=== PATIENT | male | born 1940 | race Caucasian/White ===

== ENCOUNTER → 2016-12-06 | Outpatient (CLI) | payer MEDICARE, OTHER ==
--- NOTE | 2016-12-07 09:32 | DRAGON STRESS TEST REPORT ---
EXERCISE CARDIOLITE STRESS TEST USING SINGLE PHOTON EMMISION COMPUTERIZED TOMOGRAPHIC. DATE OF PROCEDURE: December 06, 2016 INDICATION : Coronary artery disease CARDIAC RISK FACTORS: Hypertension, dyslipidemia, diabetes RESTING EKG: Sinus rhythm, QS complex in V1 to V3 suggestive of prior anteroseptal myocardial infarction and nonspecific T-wave inversion STRESS EKG: No significant changes noted with LexiScan bolus REASON FOR TERMINATION: Protocol. PROCEDURE REPORT: Baseline heart rate 98 beats per minute with blood pressure of 112/49. Patient was exercised on standard Cornel protocol. Patient exercised for total of 4 minutes and 27 seconds. Stage was held at stage I. Patient achieved a peak heart rate of 1 27 bpm which is 87% of predicted maximum. Peak blood pressure was noted to be 148/64. Patient achieved a met level of 4.60. Double product was noted to be 18.14 kcal. CONCLUSIONS: No significant ST segment changes were noted when compared to baseline. NUCLEAR DATA: At rest the patient was given 16.02 millicuries of technetium 99 sestamibi injected intravenously. As per protocol rest gated SPECT images were obtained. Subsequently the patient was given intravenous LexiScan at a dose of 0.4 mg in 5 mL intravenously, followed by flush with normal saline. Subsequently the stress dose of 47.4 millicuries of technetium 99 sestamibi was injected intravenously. As per protocol stress gated images were obtained. NUCLEAR INTERPRETATION: Both raw and processed data were used for interpretation. Visual, qualitative, computer-generated quantitative data was used. There was good myocardial uptake of technetium compound. Motion artifact and soft tissue attenuations were noted. Increased visceral uptake was noted. An area of severe fixed defect noted in the LV apex consistent with scar and prior myocardial infarction. In addition an area of mild to moderate predominantly fixed defect with surrounding area of transient perfusion defect noted in the basal and mid inferior wall. EKG gated imaging showed LV EF at 40 %, rest and stress gated EF similar visually. Apical akinesia along with inferior wall hypokinesia noted. T I D. ratio was 0.95. Lung heart ratio noted to be within normal limits 0.31. No significant extracardiac and abnormal radiotracer activities were noted. RV free wall uptake was noted to be WNL. IMPRESSION: Also refer to comments under nuclear interpretation. Also test results needs to be interpreted in the context of pretest probability. 1. Severe fixed defect noted in the LV apex consistent with prior myocardial infarction. 2. Predominantly mild to moderate fixed defect in the basal and mid inferior wall with small area of transient perfusion defect noted. This is indicative of mild to moderate scar with surrounding ischemia involving the basal and mid inferior wall. 3. EKG gated imaging shows left ejection fraction of approximately 40% with apical akinesia and basal and mid inferior wall hypokinesia. 4. Patient noted to have decreased exercise tolerance but possibly satisfactory for a 76-year-old gentleman with obesity. Double product achieved with suboptimal. RECOMMENDATIONS: Aggressive risk factor modification, medical therapy. Consider heart catheterization if significant symptoms. Clinical correlation with echocardiogram derived ejection fraction. Inability to exercise by itself can lead to increased cardiovascular event risks. Stan Lozano M.D., [employer]EREM[employer] Clerk dealer account manager, Board certified in cardiovascular diseases, Nuclear cardiology, Echocardiography Cardiac CT and cardiac MRI Ph. [phone] [facility]
== END ==
LOC: RAD 07:42
PROVIDERS: ATTEND Internal Medicine Cardiovascular Disease
DX: I25.10 Atherosclerotic heart disease of native coronary artery without angina pectoris (principal); I10 Essential (primary) hypertension; E78.5 Hyperlipidemia, unspecified; E11.9 Type 2 diabetes mellitus without complications
CPT/HCPCS: 93017; 78452; A9500; Q9969

== ENCOUNTER 2017-08-29 16:12 | Observation (INO) | payer MEDICARE, OTHER ==
[2017-08-29] MEDS ORDERED: ASPIRIN 81 MG TABLET, CHEWABLE PO ONE (16:18)
[2017-08-29 16:45] LABS: ABSOLUTE BASOPHILS # (AUTO) 0.1 10^3/uL (0.0-0.2); ABSOLUTE EOSINOPHILS # (AUTO) 0.2 10^3/uL (0.0-0.6); ABSOLUTE LYMPHOCYTES (AUTO) 2.8 10^3/uL (0.5-4.7); ABSOLUTE MONOCYTES (AUTO) 0.9 10^3/uL (0.1-1.4); ABSOLUTE NEUT (AUTO) 5.7 10^3/uL (1.7-8.2); BASOPHILS % (AUTO) 0.7 % (0-2); EOSINOPHILS % (AUTO) 1.8 % (0-6); HEMOGLOBIN 14.2 g/dL (13.5-17.0); LYMPHOCYTES % (AUTO) 28.7 % (13-45); MEAN CORPUSCULAR HEMOGLOBIN 29.3 pg (27.0-33.4); MEAN CORPUSCULAR HGB CONC 33.1 g/dL (32.0-36.0); MEAN CORPUSCULAR VOLUME 89 fl (80-97); MONOCYTES % (AUTO) 9.7 % (3-13); PLATELET COUNT 314 10^3/uL (150-450); RED BLOOD COUNT 4.85 10^6/uL (4.35-5.55); RED CELL DISTRIBUTION WIDTH 14.3 % (11.5-14.0); SEGMENTED NEUTROPHILS % (AUTO) 59.1 % (42-78); TOTAL CELLS COUNTED % (AUTO) 100 %; WHITE BLOOD COUNT 9.7 10^3/uL (4.0-10.5)
--- NOTE | 2017-08-29 16:58 | ER Document Report ---
ED General - General Chief Complaint: Chest Pain Stated Complaint: CHEST PAIN Time Seen by Provider: 08/29/17 16:47 Mode of Arrival: Medic Information source: Patient TRAVEL OUTSIDE OF THE [place] IN LAST 30 DAYS: No - HPI Notes: 77-year-old male with a history of hyperlipidemia, GERD, acute coronary syndrome and well-controlled diabetes presents today with complaints of left- sided transient chest pain that has been occurring for the last day, reports pain is now mental. Patient states that he called 911 because the chest pain was getting worse. He was given 324 baby aspirin to chew, was given 1 nitroglycerin sublingual to take. Patient reports chest pain did not radiate. Patient was diagnosed in 1986 with having a heart attack, in 1989 patient had a bypass involving 4 vessels. Patient reports in 1999 he had a stent placed in [place]. Patient denies worse with movement. Patient states he had a cardiac stress test and echocardiogram in November 2016. patient states he has a pain at rest. Eating and drink without issues. Denies fevers, chills, palpitations, shortness of breath, dyspnea, nausea, vomiting, diarrhea, abdominal pain, hematuria,blurred vision, double vision, loss of vision, speech changes, LH, dizziness, syncope, headaches, wheezing, ST, URI, neck pain, weakness, bowel or bladder dysfunction, saddle anesthesia, numbness or tingling in bilateral upper or lower extremities equally, muscle paralysis, weakness in bilateral upper or lower extremities equally or rash. Denies IV drug use. - Related Data Allergies/Adverse Reactions: acetaminophen [From Excedrin P.M.] Allergy (Verified 08/29/17 16:36) diphenhydramine citrate [From Excedrin P.M.] Allergy (Verified 08/29/17 16:36) diphenhydramine HCl [From Excedrin P.M.] Allergy (Verified 08/29/17 16:36) Past Medical History - General Information source: Patient - Social History Smoking Status: Former Smoker Chew tobacco use (# tins/day): No Frequency of alcohol use: None Drug Abuse: None Family History: CAD, Hyperlipidemia Patient has suicidal ideation: No Patient has homicidal ideation: No - Past Medical History Cardiac Medical History: Reports: Hx Heart Attack Renal/ Medical History: Denies: Hx Peritoneal Dialysis Past Surgical History: Reports: Hx Cardiac Catheterization - with stents - Immunizations Hx Pneumococcal Vaccination: 06/24/09 Review of Systems - Review of Systems Notes: REVIEW OF SYSTEMS: CONSTITUTIONAL : Denies fever, chills, or sweats. Denies recent illness. EENT: Denies eye, ear, throat, or mouth pain or symptoms. Denies nasal or sinus congestion or discharge. Denies throat, tongue, or mouth swelling or difficulty swallowing. CARDIOVASCULAR: reports chest pain. Denies palpitations or racing or irregular heart beat. Denies ankle edema. RESPIRATORY: Denies cough, cold, or chest congestion. Denies shortness of breath, difficulty breathing, or wheezing. GASTROINTESTINAL: Denies abdominal pain or distention. Denies nausea, vomiting , or diarrhea. Denies blood in vomitus, stools, or per rectum. Denies black, tarry stools. Denies constipation. GENITOURINARY: Denies difficulty urinating, painful urination, burning, frequency, blood in urine, or discharge. MUSCULOSKELETAL: Denies back or neck pain or stiffness. Denies joint pain or swelling. SKIN: Denies rash, lesions or sores. HEMATOLOGIC : Denies easy bruising or bleeding. LYMPHATIC: Denies swollen, enlarged glands. NEUROLOGICAL: Denies confusion or altered mental status. Denies passing out or loss of consciousness. Denies dizziness or lightheadedness. Denies headache. Denies weakness or paralysis or loss of use of either side. Denies problems with gait or speech. Denies sensory loss, numbness, or tingling. Denies seizures. PSYCHIATRIC: Denies anxiety or stress. Denies depression, suicidal ideation, or homicidal ideation. ALL OTHER SYSTEMS REVIEWED AND NEGATIVE. Dictation was performed using [employer] voice recognition software PHYSICAL EXAMINATION: GENERAL: Well-appearing, well-nourished and in no acute distress. HEAD: Atraumatic, normocephalic. EYES: Pupils equal round and reactive to light, extraocular movements intact, sclera anicteric, conjunctiva are normal. ENT: Nares patent, oropharynx clear without exudates. Moist mucous membranes. NECK: Normal range of motion, supple without lymphadenopathy LUNGS: Breath sounds clear to auscultation bilaterally and equal. No wheezes rales or rhonchi. HEART: Regular rate and rhythm without murmurs ABDOMEN: Soft, nontender, nondistended abdomen. No guarding, no rebound. No masses appreciated. Musculoskeletal: Normal range of motion, no pitting or edema. No cyanosis. NEUROLOGICAL: Cranial nerves grossly intact. Normal speech, normal gait. Normal sensory, motor exams PSYCH: Normal mood, normal affect. SKIN: Warm, Dry, normal turgor, no rashes or lesions noted. Physical Exam - Vital signs Vitals: Temp Resp 98.1 F 15 08/29/17 16:18 08/29/17 16:18 Course - Re-evaluation Re-evalutation: 08/29/17 17:43 1630-patient evaluated at bedside, vital signs stable. 1700-patient states his chest pain, patient given 0.4 nitro sublingual, 5 minutes later patient states that his chest pain was resolved.Discussed the results of the labs/radiology as well as the diagnosis at great length. Discussed with patient that his troponin is negative, his EKG is non-STEMI, however he since he is having chest pain was resolved with nitro, as well as with his extensive history of cardiac bypass, cardiac cath, hyperlipidemia, diabetes patient's heart score is 4, which places him at moderate risk. will admit patient for observation. Lucia Garza consulted at 1740 and patient was accepted to be admitted on observation to telemetry for unstable angina. Patient verbalized understanding and all questions and concerns answered by this provider. - Vital Signs Vital signs: Temp Pulse Resp BP Pulse Ox 98.1 F 21 H 112/69 98 08/29/17 16:18 08/29/17 16:19 08/29/17 16:19 08/29/17 16:29 - Laboratory Result Diagrams: 08/29/17 16:23 08/29/17 16:23 Laboratory results interpreted by me: 08/29/17 08/29/17 16:23 16:23 RDW 14.3 H Glucose 157 H Discharge - Discharge Clinical Impression: Unstable angina Condition: Good Disposition: ADMITTED OBSERVATION Admitting Provider: Hospitalist - Lucia Garza NP Unit Admitted: Telemetry
[2017-08-29] MEDS ORDERED: NORMAL SALINE 1000 ML 1,000 ML IV PRN (16:59)
[2017-08-29] MEDS ORDERED: NITROGLYCERIN 0.4 MG/TAB 25 TAB/BOTTLE SL STA (16:59)
[2017-08-29 17:05] LABS: ALANINE AMINOTRANSFERASE 35 U/L (21-72); ALBUMIN 3.9 g/dL (3.5-5.0); ALKALINE PHOSPHATASE 79 U/L (38-126); ANION GAP 10 (5-19); ASPARTATE AMINO TRANSFERASE 21 U/L (17-59); BILIRUBIN,DIRECT 0.4 mg/dL (0.0-0.4); BILIRUBIN,TOTAL 1.1 mg/dL (0.2-1.3); BLOOD UREA NITROGEN 17 mg/dL (7-20); CALCIUM 9.5 mg/dL (8.4-10.2); CARBON DIOXIDE 26 mmol/L (22-30); CHLORIDE 103 mmol/L (98-107); CREATINE KINASE 56 U/L (55-170); GLUCOSE 157 mg/dL (75-110); POTASSIUM 4.3 mmol/L (3.6-5.0); SODIUM 138.9 mmol/L (137-145); TOTAL PROTEIN 6.4 g/dL (6.3-8.2)
--- NOTE | 2017-08-29 17:14 | RADIOLOGY REPORT (SQ) ---
EXAM DESCRIPTION: CHEST SINGLE VIEW COMPLETED DATE/TIME: 08/29/2017 5:03 pm REASON FOR STUDY: cp COMPARISON: 01/24/2011 EXAM PARAMETERS: NUMBER OF VIEWS: One view. TECHNIQUE: Single frontal radiographic view of the chest acquired. RADIATION DOSE: NA LIMITATIONS: None. FINDINGS: LUNGS AND PLEURA: No opacities, masses or pneumothorax. No pleural effusion. MEDIASTINUM AND HILAR STRUCTURES: No masses. Contour normal. HEART AND VASCULAR STRUCTURES: Heart normal in size. Normal vasculature. BONES: No acute findings. HARDWARE: Sternotomy wires. OTHER: No other significant finding. IMPRESSION: NO ACUTE RADIOGRAPHIC FINDING IN THE CHEST. TECHNICAL DOCUMENTATION: JOB ID: [id number] [employer]- All Rights Reserved Reading location - IP/workstation name: [email or web address]
[2017-08-29 17:16] LABS: CREATINE KINASE MB 0.85 ng/mL (<4.55)
[2017-08-29 17:19] LABS: TROPONIN I < 0.012 ng/mL
[2017-08-29] MEDS ORDERED: NORMAL SALINE 1000 ML 1,000 ML IV ONE (17:58)
[2017-08-29] MEDS ORDERED: NITROGLYCERIN 0.4 MG/TAB 25 TAB/BOTTLE SL PRN (18:12)
--- NOTE | 2017-08-29 19:22 | PDOC H&P ---
History of Present Illness Admission Date/PCP: 08/29/17 17:45 LETICIA RANKIN MD Patient complains of: Chest pain History of Present Illness: DINORA SALDANA is a 77 year old male who presents to the emergency department with left anterior chest wall pressure/tightness x 1 day. The patient states that the pain is centered on the left side of his chest, it is nonradiating. He denies nausea, vomiting, dizziness, shortness of breath, vision changes with episodes of chest pain. The patient states that his chest pain began when he was going to the bathroom, and his pain has been intermittent ever since then. EMS transported the patient to the emergency department, en route the patient received 1 sublingual nitro and 325 mg ASA. His chest pain was mildly relieved , but reoccurred while he was in the emergency department. Patient was given another dose of sublingual nitro and he states that he has been chest pain-free since that time. EKG shows normal sinus rhythm with T-wave inversion in leads V4-6. Initial troponin was < 0.012. Chest x-ray benign. PMH includes DM, HTN, HLD, ID (1986), 4 vessel CABG (1989), Stent x 1 (2009). Most recent stress test and echocardiogram completed in November 2016 Past Medical History Cardiac Medical History: Reports: Coronary Artery Disease, Myocardial Infarction Endocrine Medical History: Reports: Diabetes Mellitus Type 2 GI Medical History: Reports: Gastroesophageal Reflux Disease GI History Note: HYPERLIPIDEMIA Past Surgical History Past Surgical History: Reports: Cardiac Catheterization - with stents, Cholecystectomy Social History Lives with: Spouse/Significant other Smoking Status: Former Smoker Drugs: None - Advance Directive Resuscitation Status: Full Code Family History Family History: CAD, Hyperlipidemia Parental Family History Reviewed: No Children Family History Reviewed: No Sibling(s) Family History Reviewed.: No Medication/Allergy Home Medications: Amlodipine/Atorvastatin [Amlodipine-Atorvast 10-10 mg] 10 PO DAILY 08/29/17 Atorvastatin Calcium 40 mg PO WSUPPER 08/29/17 Lisinopril 10 mg PO WSUPPER 08/29/17 Metoprolol Chinchilla/Hydrochlorothiaz [Metoprolol ER-Hctz 50-12.5 mg] 50 PO DAILY 08/29 Omeprazole 20 mg PO DAILY 08/29/17 Pioglitazone HCl 30 mg PO DAILY 08/29/17 Allergies/Adverse Reactions: acetaminophen [From Excedrin P.M.] Allergy (Verified 08/29/17 16:36) diphenhydramine citrate [From Excedrin P.M.] Allergy (Verified 08/29/17 16:36) diphenhydramine HCl [From Excedrin P.M.] Allergy (Verified 08/29/17 16:36) Review of Systems Constitutional: PRESENT: as per HPI Eyes: ABSENT: as per HPI, visual disturbances, other Ears: ABSENT: as per HPI, hearing changes, other Nose, Mouth, and Throat: ABSENT: as per HPI, headache(s), mouth pain, sore throat, vertigo, other Cardiovascular: PRESENT: chest pain Respiratory: ABSENT: as per HPI, cough, dyspnea, hemoptysis, sputum, other Gastrointestinal: ABSENT: as per HPI, abdominal pain, bloating, coffee ground emesis, constipation, diarrhea, dysphagia, heartburn, hematemesis, hematochezia , melena, nausea, vomiting, other Genitourinary: ABSENT: as per HPI, difficulty urinating, dysuria, hematuria, nocturia, other Musculoskeletal: ABSENT: as per HPI, back pain, deformity, joint swelling, muscle weakness, other Neurological: ABSENT: as per HPI, abnormal gait, abnormal movements, abnormal speech, confusion, convulsions, dizziness, focal weakness, frequent falls, lack of coordination, memory loss, numbness, paresthesias, restless legs, syncope, tingling, tremor(s), vertigo, weakness, other Psychiatric: ABSENT: as per HPI, anxiety, depression, hallucinations, homidical ideation, suicidal ideation, other Endocrine: ABSENT: as per HPI, cold intolerance, flushing, heat intolerance, menstrual abnormalities, polydipsia, polyphagia, polyuria, other Hematologic/Lymphatic: ABSENT: as per HPI, easy bleeding, easy bruising, lymphadenopathy, other Allergic/Immunologic: ABSENT: as per HPI, seasonal rhinorrhea, other Physical Exam Vital Signs: Temp Pulse Resp BP Pulse Ox 98.1 F 21 H 112/69 98 08/29/17 16:18 08/29/17 16:19 08/29/17 16:19 08/29/17 16:29 General appearance: PRESENT: no acute distress Head exam: PRESENT: atraumatic Eye exam: PRESENT: conjunctiva pink Mouth exam: PRESENT: moist Neck exam: PRESENT: full ROM Respiratory exam: PRESENT: clear to auscultation randy Cardiovascular exam: PRESENT: +S1 Pulses: PRESENT: normal femoral pulses, normal dorsalis pedis pul Vascular exam: PRESENT: normal capillary refill GI/Abdominal exam: PRESENT: soft Rectal exam: PRESENT: deferred Extremities exam: PRESENT: full ROM Musculoskeletal exam: PRESENT: full ROM Neurological exam: PRESENT: alert, altered, awake, oriented to person, oriented to place, oriented to time, oriented to situation Psychiatric exam: PRESENT: appropriate affect Skin exam: PRESENT: normal color Additional comments: MORBID OBESITY Results Impressions: Chest X-Ray 08/29/17 16:18 IMPRESSION: NO ACUTE RADIOGRAPHIC FINDING IN THE CHEST. Status: Imported from PACS Assessment & Plan - Diagnosis (1) Chest pain Qualifiers: Chest pain type: other chest pain Qualified Code(s): R07.89 - Other chest pain; R07.8 - Other chest pain Is this a current diagnosis for this admission?: Yes Plan: Patient presents with left anterior wall chest pressure/tightnessx 1 day. Pain started when patient was in the bathroom and has continued intermittently x 24hrs. The patient states his chest pain is intermittent in nature and nonradiating. Relieved with SL nitro. At the time of assessment the patient stated that he was chest pain-free. History of ID, four-vessel CABG, cardiac stent 1. Given the patient's significant cardiac history, and nearly 20 year old bypass vessels, this patient needs to be closely monitored. Cardiology consulted. Plan for ECHOcardiogram and stress test tomorrow morning. Initial troponin negative, will continue to trend x 3 EKG shows NSR with T wave inversion in V4-6 ASA, beta pa, statin therapy (2) Hypertension Qualifiers: Hypertension type: essential hypertension Qualified Code(s): I10 - Essential (primary) hypertension Is this a current diagnosis for this admission?: Yes Plan: Patient has a history of hypertension. While in the emergency department he has been NORMOtensive. Will continue home dose antihypertensives. (3) Hyperlipemia Qualifiers: Hyperlipidemia type: unspecified Qualified Code(s): E78.5 - Hyperlipidemia , unspecified Is this a current diagnosis for this admission?: Yes Plan: Patient has a history of hyperlipidemia. Continue home dose statin. - Time Time Spent: 30 to 50 Minutes Medications reviewed and adjusted accordingly: Yes Anticipated discharge: Home Within: within 36 hours - Inpatient Certification Based on my medical assessment, after consideration of the patient's comorbidities, presenting symptoms, or acuity I expect that the services needed warrant INPATIENT care.: Yes I certify that my determination is in accordance with my understanding of Medicare's requirements for reasonable and necessary INPATIENT services [42 CFR 412.3e].: Yes Medical Necessity: Risk of Complication if Not Cared For in Hospital - Plan Summary Plan Summary: Ultimately, the plan for this patient is to admit under observation status for chest pain workup. He will be evaluated by cardiology, and a stress test and echocardiogram will be performed. Additionally we will follow serial cardiac enzymes. Should the patient began to experience chest pain not relieved by nitro or should he start to decompensate, consider transfer to tertiary facility.
--- NOTE | 2017-08-29 22:05 | EKG REPORT ---
SEVERITY:- ABNORMAL ECG - SINUS RHYTHM ANTERIOR INFARCT, AGE INDETERMINATE : Confirmed by: Stan Lozano 29-Aug-2017 22:05:31
[2017-08-29] MEDS: LISINOPRIL 10 MG TABLET PO SCH (22:43)
[2017-08-29] MEDS: ATORVASTATIN CALCIUM 40 MG TABLET PO SCH (22:44)
[2017-08-30] MEDS ORDERED: IBUPROFEN 400 MG TABLET PO PRN (05:37)
[2017-08-30] MEDS: LANSOPRAZOLE 15 MG TAB.RAP.DR PO SCH (05:41)
[2017-08-30 06:29] LABS: ABSOLUTE EOSINOPHILS # (AUTO) 0.2 10^3/uL (0.0-0.6); ABSOLUTE LYMPHOCYTES (AUTO) 2.8 10^3/uL (0.5-4.7); ABSOLUTE MONOCYTES (AUTO) 0.9 10^3/uL (0.1-1.4); ABSOLUTE NEUT (AUTO) 5.1 10^3/uL (1.7-8.2); BASOPHILS % (AUTO) 0.5 % (0-2); EOSINOPHILS % (AUTO) 2.1 % (0-6); HEMOGLOBIN 13.9 g/dL (13.5-17.0); LYMPHOCYTES % (AUTO) 30.8 % (13-45); MEAN CORPUSCULAR HEMOGLOBIN 29.2 pg (27.0-33.4); MEAN CORPUSCULAR HGB CONC 33.1 g/dL (32.0-36.0); MEAN CORPUSCULAR VOLUME 88 fl (80-97); MONOCYTES % (AUTO) 9.5 % (3-13); RED BLOOD COUNT 4.76 10^6/uL (4.35-5.55); RED CELL DISTRIBUTION WIDTH 14.4 % (11.5-14.0); SEGMENTED NEUTROPHILS % (AUTO) 57.1 % (42-78); TOTAL CELLS COUNTED % (AUTO) 100 %
[2017-08-30 06:30] LABS: PLATELET COUNT 260 10^3/uL (150-450)
[2017-08-30 07:19] LABS: ANION GAP 8 (5-19); BLOOD UREA NITROGEN 13 mg/dL (7-20); CALCIUM 9.4 mg/dL (8.4-10.2); CARBON DIOXIDE 24 mmol/L (22-30); CHLORIDE 108 mmol/L (98-107); GLUCOSE 128 mg/dL (75-110); PHOSPHORUS 3.4 mg/dL (2.5-4.5); POTASSIUM 4.3 mmol/L (3.6-5.0); SODIUM 139.5 mmol/L (137-145)
--- NOTE | 2017-08-30 08:51 | EKG REPORT ---
SEVERITY:- ABNORMAL ECG - SINUS RHYTHM ANTERIOR INFARCT, AGE INDETERMINATE : Confirmed by: Stan Lozano 30-Aug-2017 08:50:29
[2017-08-30] MEDS ORDERED: ASPIRIN 81 MG TABLET, CHEWABLE PO SCH (10:00)
--- NOTE | 2017-08-30 12:26 | PDOC CONSULTATION ---
Consultation Consult Date: 08/30/17 Attending physician:: EULA SOLORZANO Consult reason:: Chest pain History of Present Illness Admission Date/PCP: 08/29/17 17:45 LETICIA RNAKIN MD Patient complains of: Chest pain History of Present Illness: DINORA SALDANA is a 77 year old male who presents to the emergency department with left anterior chest wall pressure/tightness x 1 day. The patient states that the pain is centered on the left side of his chest, it is nonradiating. He denies nausea, vomiting, dizziness, shortness of breath, vision changes with episodes of chest pain. The patient states that his chest pain began when he was going to the bathroom, and his pain has been intermittent ever since then. EMS transported the patient to the emergency department, en route the patient received 1 sublingual nitro and 325 mg ASA. His chest pain was mildly relieved , but reoccurred while he was in the emergency department. Patient was given another dose of sublingual nitro and he states that he has been chest pain-free since that time. EKG shows normal sinus rhythm with T-wave inversion in leads V4-6. Initial troponin was < 0.012. Chest x-ray benign. PMH includes DM, HTN, HLD, [place] (1986), 4 vessel CABG (1989), Stent x 1 (2009). Most recent stress test and echocardiogram completed in November 2016. This history was reviewed and confirmed. Patient described the chest discomfort as intermittent lasting about 2 minutes at most, without any definite precipitating factors. It happened throughout the day off and on, on the day of presentation. So far cardiac enzymes has been negative. EKG changes as noted above. Subsequent troponin I came back negative. Past Medical History Cardiac Medical History: Reports: Congestive Heart Failure, Coronary Artery Disease, Myocardial Infarction, Hypertension Endocrine Medical History: Reports: Diabetes Mellitus Type 2 GI Medical History: Reports: Gastroesophageal Reflux Disease Past Surgical History Past Surgical History: Reports: Cardiac Catheterization - with stents, Cholecystectomy Social History Information Source: Patient Lives with: Spouse/Significant other Smoking Status: Former Smoker Drugs: None - Advance Directive Resuscitation Status: Full Code Family History Family History: CAD, Hyperlipidemia Parental Family History Reviewed: Yes Children Family History Reviewed: Yes Sibling(s) Family History Reviewed.: Yes Medication/Allergy Home Medications: Amlodipine Besylate [Norvasc 5 mg Tablet] 5 mg PO DAILY 08/30/17 Aspirin [Aspirin 81 mg Chewable Tablet] 81 mg PO DAILY 08/30/17 Lisinopril [Prinivil 10 mg Tablet] 10 mg PO QHS 08/30/17 Loratadine [Claritin 10 mg Tablet] 10 mg PO DAILYP PRN 08/30/17 Metoprolol Tartrate [Lopressor 100 mg Tablet] 100 mg PO DAILY 08/30/17 Multivit with Iron,Minerals [Spectravite Senior] 1 each PO DAILY 08/30/17 Nitroglycerin [Nitrostat 0.4 mg (1/150 Gr) Tabs 25/Bottle] 1 tab SL Q5MP PRN 03/11 [place]-3 Acid Ethyl Esters [Lovaza 1 gm Capsule] 1 gm PO DAILY 08/30/17 Omeprazole 20 mg PO Q6AM 08/30/17 Pioglitazone HCl [Actos] 30 mg PO QAM 08/30/17 Vit C/E/Zn/Coppr/Lutein/Zeaxan [Preservision Areds 2 Softgel] 1 each PO DAILY Atorvastatin Calcium [Lipitor 80 mg Tablet] 80 mg PO QHS #30 tablet 08/31/17 Lisinopril [Prinivil 10 mg Tablet] 10 mg PO QHS tablet 08/31/17 Allergies/Adverse Reactions: acetaminophen [From Excedrin P.M.] Allergy (Severe, Verified 08/30/17 05:17) TONGUE SWELLING diphenhydramine HCl [From Excedrin P.M.] Allergy (Severe, Verified 08/30/17 05: 16) TONGUE SWELLING diphenhydramine citrate [From Excedrin P.M.] Allergy (Verified 08/30/17 05:17) TONGUE SWELLING Review of Systems Review of Systems: Please see history of present illness and past medical history as wall. Constitutional: No fever or chills reported. Head : No recent chronic headaches, recent head injury. Eyes: No recent eye pain, diplopia, redness, discharge, acute visual changes. Ears: No recent chronic ear pain, acute hearing loss, ear discharge. Oral cavity: No recent ulcerations, bleeding, oral cavity discomfort. Neck: No recent acute neck pain reported. Hematologic: No recent easy bruising or bleeding or hematologic malignancy reported. Lymphatic: No recent lymphatic malignancy, chronic lymphadenopathy reported yet Cardiovascular system review: See history of present illness. Respiratory system review: No recent chronic cough, hemoptysis, blood clots in the lungs reported. Mild Shortness of breath on exertion Gastrointestinal system review: Negative for any recent acute or chronic abdominal pain, hematemesis, melena, recent change in bowel habits. Genitourinary system review: No recent acute or chronic hematuria, flank pain, UTI etc. reported. Skin system review: Negative for any recent abnormal bruising, no rash, no pruritus reported. Neurologic: No prior history of strokes, mini strokes, seizure disorder. Psychologic: No history of major psychosis or major depression reported. Musculoskeletal: Minor aches and pains reported. No acute joint swelling reported. Endocrine: No recent polyuria, polydipsia, recent heat or cold intolerance. Physical Exam Vital Signs: Temp Pulse Resp BP Pulse Ox 98.0 F 106 H 19 136/77 H 96 08/30/17 11:15 08/30/17 11:15 08/30/17 11:15 08/30/17 11:15 08/30/17 11:15 Intake & Output 08/29/17 08/30/17 08/31/17 06:59 06:59 06:59 Intake Total 200 Balance 200 Weight 128.5 kg Exam: GENERAL: well-nourished and in no acute distress. Alert and oriented x3 HEAD: Atraumatic, normocephalic. EYES: Pupils equal round and reactive to light, extraocular movements intact, sclera anicteric, conjunctiva are normal. ENT: TMs normal, nares patent, oropharynx clear without exudates. Moist mucous membranes. No oral ulcerations or bleeding gums noted NECK: supple without lymphadenopathy. Trachea is central. No cervical or axillary lymphadenopathy noted. Carotids are 2+, JVD WNL LUNGS: Respiration seems nonlabored, no significant accessory muscle action noted. Breath sounds clear to auscultation bilaterally and equal noted. No wheezes rales or rhonchi noted. No significant dullness noted on percussion. CHEST: Palpation of the chest wall shows no significant chest wall tenderness. No other significant abnormalities noted. 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 ABDOMEN: Soft, no significant tenderness appreciated, normoactive bowel sounds. No guarding, no rebound. No rigidity noted . No masses appreciated. EXTREMITIES: Pedal pulses are 1-2+, no calf tenderness noted. No clubbing or cyanosis.trace to 1+ pedal edema noted, left lower extremity NEUROLOGICAL: Focused neurological exam showed no significant neurologic deficit. Normal speech, no focal weakness appreciated. PSYCH: Normal mood, normal affect. Judgment and insight within normal limits. SKIN: No significant ecchymosis, skin is noted to be warm. MUSCULOSKELETAL EXAM: No significant acute joint swelling noted. Results Laboratory Results: 08/30/17 04:39 08/30/17 06:36 08/30/17 08/30/17 08/30/17 04:39 04:39 06:36 WBC 9.0 RBC 4.76 Hgb 13.9 Hct 42.0 MCV 88 MCH 29.2 MCHC 33.1 RDW 14.4 H Plt Count 260 Seg Neutrophils % 57.1 Lymphocytes % 30.8 Monocytes % 9.5 Eosinophils % 2.1 Basophils % 0.5 Absolute Neutrophils 5.1 Absolute Lymphocytes 2.8 Absolute Monocytes 0.9 Absolute Eosinophils 0.2 Absolute Basophils 0.0 Sodium Cancelled 139.5 Potassium Cancelled 4.3 Chloride Cancelled 108 H Carbon Dioxide Cancelled 24 Anion Gap Cancelled 8 BUN Cancelled 13 Creatinine Cancelled 0.60 Est GFR ( Amer) Cancelled > 60 Est GFR (Non-Af Amer) Cancelled > 60 Glucose Cancelled 128 H Calcium Cancelled 9.4 Phosphorus Cancelled 3.4 08/29/17 08/30/17 21:20 10:08 Troponin I < 0.012 < 0.012 EKG Comments: Twelve-lead EKG 2 available for review. It shows sinus rhythm, QS complex V1 to V3 suggestive of prior anteroseptal myocardial infarction and nonspecific T- wave changes precordial leads. Impressions: Chest X-Ray 08/29/17 16:18 IMPRESSION: NO ACUTE RADIOGRAPHIC FINDING IN THE CHEST. Assessment & Plan - Diagnosis (1) Chest pain Qualifiers: Chest pain type: other chest pain Qualified Code(s): R07.89 - Other chest pain; R07.8 - Other chest pain Is this a current diagnosis for this admission?: Yes (2) Hyperlipemia Qualifiers: Hyperlipidemia type: unspecified Qualified Code(s): E78.5 - Hyperlipidemia , unspecified Is this a current diagnosis for this admission?: Yes (3) Hypertension Qualifiers: Hypertension type: essential hypertension Qualified Code(s): I10 - Essential (primary) hypertension Is this a current diagnosis for this admission?: Yes (4) Unstable angina Is this a current diagnosis for this admission?: Yes (5) Obesity Qualifiers: Obesity type: unspecified obesity type Obesity classification: unspecified obesity classification Is this a current diagnosis for this admission?: Yes (6) Coronary artery disease Qualifiers: Coronary Disease-Associated Artery/Lesion type: unspecified vessel or lesion type [place] vs. transplanted heart: [place] heart Associated angina: angina presence unspecified Qualified Code(s): I25.10 - Atherosclerotic heart disease of [place] coronary artery without angina pectoris Is this a current diagnosis for this admission?: Yes - Notes Notes: Chest pain: High probability that it is cardiac ischemia due to high pretest probability. So far cardiac enzymes are negative. Agree with 2D echo and a nuclear stress test. Further plan after these tests are completed. Recommend optimizing medical therapy for underlying CAD. Hypertension: Blood pressure goal in this patient is 140/90 or less. This was discussed with the patient. Currently blood pressure under reasonable control. Better medication for this patient are OLIVER inhibitor/ARB/beta pa etc. discussed side effects of uncontrolled hypertension and also severe hypotension. Hyperlipidemia: LDL goal is less than 70. Recommend statin therapy at least intermediate or high dose, of high potency status. Periodic lipid panel and liver panel is indicated. Patient to report any significant muscle discomfort or other side effects. Unstable angina: Currently stabilized. Coronary artery disease: Patient status post CABG and also had history of stents. Medical management to be optimized during this admission. Obesity: Patient encouraged in weight loss. Patient also encouraged to get a sleep study done to rule out underlying sleep apnea as patient does have body habitus and comorbid diagnosis indicating high probability of underlying sleep apnea syndrome. - Time Time Spent: 30 to 50 Minutes - CODE STATUS was discussed, patient remains full code. Surrogate decision-maker Lori Cochran, patient's girlfriend. Multiple medical problems were addressed. More than 50% of the time spent coordinating care, discussing management plans with involved caregivers. Management plans discussed with involved personnels. Medical decision making was of moderate to high complexity, patient's has multiple comorbidities. Medications reviewed and adjusted accordingly: Yes
--- NOTE | 2017-08-30 14:07 | DRAGON STRESS TEST REPORT ---
INTRAVENOUS LEXISCAN CARDIOLITE STRESS TEST USING SINGLE PHOTON EMMISION COMPUTERIZED TOMOGRAPHIC. DATE OF PROCEDURE: August 30, 2017, INDICATION : Chest pain CARDIAC RISK FACTORS: Diabetes, dyslipidemia, history of CABG 1989 and stent placement 2009 RESTING EKG: Sinus rhythm, nonprogression of R-wave anterior precordial leads and minor nonspecific ST-T changes. STRESS EKG: No significant changes noted with LexiScan bolus REASON FOR TERMINATION: Protocol. PROCEDURE REPORT: Baseline heart rate 105 beats per minute with blood pressure of 130/62. Patient had no significant complaints. Heart rate at 2 minutes post bolus 117 with a blood pressure of 105/54. 3 minutes post bolus heart rate 114 with blood pressure of 110/67. No significant EKG changes were noted. Patient had no significant complaints during the procedure or postprocedure. Patient injected with Aminophyllin 75 mg at 3 minutes or later after Lexiscan bolus. CONCLUSIONS: Normal EKG and hemodynamic response to IV LexiScan. NUCLEAR DATA: At rest the patient was given 16.45 millicuries of technetium 99 sestamibi injected intravenously. As per protocol rest gated SPECT images were obtained. On day of stress test, the patient was given intravenous LexiScan at a dose of 0.4 mg in 5 mL intravenously, followed by flush with normal saline. Subsequently the stress dose of 45.4 millicuries of technetium 99 sestamibi was injected intravenously. As per protocol stress gated images were obtained. NUCLEAR INTERPRETATION: Both raw and processed data were used for interpretation. Visual, qualitative, computer-generated quantitative data was used. There was good myocardial uptake of technetium compound. Motion artifact and soft tissue attenuations were noted. Increased visceral uptake was noted. Predominantly severe fixed defect noted in the LV apex with minimal area of surrounding transient perfusion. In addition a predominantly mild to moderate fixed defect noted in the basal and mid inferior wall with minimal area of surrounding transient perfusion. EKG gated imaging showed LV EF at 40 %, rest and stress gated EF similar visually, apical akinesia noted with mild basal inferior wall hypokinesia. T. I D. ratio was 1.28. Lung heart ratio noted to be within normal limits 0.29. No significant extracardiac and abnormal radiotracer activities were noted. RV free wall uptake was noted to be WNL. IMPRESSION: Also refer to comments under nuclear interpretation. Also test results needs to be interpreted in the context of pretest probability. 1. Predominantly severe fixed defect, indicative of prior myocardial infarction noted in the LV apex with minimal area of surrounding transient perfusion. In addition a predominantly mild to moderate fixed defect noted in the basal and mid inferior wall with minimal area of surrounding transient perfusion. 2. There is evidence of apical scar and possible mild to moderate scar in the basal and mid inferior wall. 3. EKG gated imaging shows left ventricular ejection fraction of approx. 40%, apical akinesia and mild basal inferior wall hypokinesia noted. 4. Clinical correlation requested as occasionally single vessel disease or balanced ischemia could be missed. In approximately 10% of the cases Lexiscan may not cause adequate vasodilatory stress. RECOMMENDATIONS: Aggressive risk factor modification and medical management. Further evaluation may be needed if continued symptoms or other high risk indicators are noted on clinical evaluation. Low threshold for heart catheterization if there are significant symptoms. Close cardiology follow-up is also recommended. Clinical correlation with echocardiogram derived ejection fraction. Inability to exercise by itself can lead to increased cardiovascular event risks. Consider cardiology consultation and or follow-up if clinically indicated. I am available for cardiology evaluation and consultation if requested by the log snaker, unless patient already has a advertising manager. MICHEAL
[2017-08-30] MEDS ORDERED: REGADENOSON INJ 0.4 MG/5 ML DISP.SYRIN IV ONE (14:14)
[2017-08-30] MEDS ORDERED: AMINOPHYLLINE INJ/PF 250 MG/10 ML SDV IV ONE (14:14)
[2017-08-30] MEDS ORDERED: RANOLAZINE 500 MG TAB.SR.12H PO SCH (15:00)
[2017-08-30] MEDS ORDERED: CARVEDILOL 3.125 MG TABLET PO SCH (15:00)
--- NOTE | 2017-08-30 18:13 | PDOC PROGRESS REPORT ---
Subjective Progress Note for:: 08/30/17 Subjective:: Denis Saravia is a 77 year old male who presented to the emergency department with left anterior wall chest pain. His pain was relieved following 2 sublingual nitro and 325 mg of aspirin. Patient was admitted for chest pain observation. PMH DM, HTN, DC, CABG, STENT X 1 Patient seen this morning on rounds prior to stress test. The patient has no complaints. He denies chest pain or shortness of breath. Reason For Visit: CHEST PAIN Physical Exam Vital Signs: Temp Pulse Resp BP Pulse Ox 97.8 F 87 18 141/70 H 98 08/30/17 15:05 08/30/17 15:05 08/30/17 15:05 08/30/17 15:05 08/30/17 15:05 Intake & Output 08/29/17 08/30/17 08/31/17 06:59 06:59 06:59 Intake Total 200 Balance 200 Weight 128.5 kg General appearance: PRESENT: no acute distress Head exam: PRESENT: atraumatic Eye exam: PRESENT: conjunctiva pink Mouth exam: PRESENT: moist Neck exam: PRESENT: full ROM Respiratory exam: PRESENT: clear to auscultation randy Cardiovascular exam: PRESENT: +S1, +S2 Pulses: PRESENT: normal radial pulses, normal dorsalis pedis pul GI/Abdominal exam: PRESENT: normal bowel sounds, soft Rectal exam: PRESENT: deferred Extremities exam: PRESENT: full ROM Musculoskeletal exam: PRESENT: full ROM Neurological exam: PRESENT: alert, awake, oriented to person, oriented to place , oriented to time, oriented to situation Psychiatric exam: PRESENT: appropriate affect Results Laboratory Results: 08/30/17 04:39 08/30/17 06:36 08/30/17 08/30/17 08/30/17 04:39 04:39 06:36 WBC 9.0 RBC 4.76 Hgb 13.9 Hct 42.0 MCV 88 MCH 29.2 MCHC 33.1 RDW 14.4 H Plt Count 260 Seg Neutrophils % 57.1 Lymphocytes % 30.8 Monocytes % 9.5 Eosinophils % 2.1 Basophils % 0.5 Absolute Neutrophils 5.1 Absolute Lymphocytes 2.8 Absolute Monocytes 0.9 Absolute Eosinophils 0.2 Absolute Basophils 0.0 Sodium Cancelled 139.5 Potassium Cancelled 4.3 Chloride Cancelled 108 H Carbon Dioxide Cancelled 24 Anion Gap Cancelled 8 BUN Cancelled 13 Creatinine Cancelled 0.60 Est GFR ( Amer) Cancelled > 60 Est GFR (Non-Af Amer) Cancelled > 60 Glucose Cancelled 128 H Calcium Cancelled 9.4 Phosphorus Cancelled 3.4 08/29/17 08/30/17 21:20 10:08 Troponin I < 0.012 < 0.012 Impressions: Chest X-Ray 08/29/17 16:18 IMPRESSION: NO ACUTE RADIOGRAPHIC FINDING IN THE CHEST. Assessment & Plan - Diagnosis (1) Chest pain Qualifiers: Chest pain type: other chest pain Qualified Code(s): R07.89 - Other chest pain; R07.8 - Other chest pain Is this a current diagnosis for this admission?: Yes Plan: Patient presents with left anterior wall chest pressure/tightnessx 1 day. At the time of assessment the patient stated that he was chest pain-free. History of DC, four-vessel CABG, cardiac stent 1. Given the patient's significant cardiac history, and nearly 20 year old bypass vessels, this patient needs to be closely monitored. Cardiology consulted. ECHOcardiogram completed, results pending. Stress test mostly benign, indicative of prior myocardial infarction noted in the LV apex Initial troponin negative, will continue to trend x 3 EKG shows NSR with T wave inversion in V4-6 ASA, beta pa, statin therapy (2) Hypertension Qualifiers: Hypertension type: essential hypertension Qualified Code(s): I10 - Essential (primary) hypertension Is this a current diagnosis for this admission?: Yes Plan: Patient has a history of hypertension. While in the emergency department he has been NORMOtensive. Will continue home dose antihypertensives. (3) Hyperlipemia Qualifiers: Hyperlipidemia type: unspecified Qualified Code(s): E78.5 - Hyperlipidemia , unspecified Is this a current diagnosis for this admission?: Yes Plan: Patient has a history of hyperlipidemia. Continue home dose statin. - Time Time Spent with patient: 15-24 minutes Medications reviewed and adjusted accordingly: Yes Anticipated discharge: Home Within: within 48 hours - Inpatient Certification Based on my medical assessment, after consideration of the patient's comorbidities, presenting symptoms, or acuity I expect that the services needed warrant INPATIENT care.: Yes I certify that my determination is in accordance with my understanding of Medicare's requirements for reasonable and necessary INPATIENT services [42 CFR 412.3e].: Yes Medical Necessity: Risk of Complication if Not Cared For in Hospital - Plan Summary Plan Summary: The plan is to discharge the patient home
--- NOTE | 2017-08-30 18:17 | XCELERA REPORT ---
[address] [address] Transthoracic Echocardiogram Report Name: DINORA SALDANA Age: 77 yrs Gender: Male : 1940 Patient Status: Inpatient Patient Location: [address] [place], [place] [address] Study Date: 08/30/2017 09:39 AM Height: 71 in Weight: 283 lb BSA: 2.4 m2 Procedure: A complete two-dimensional transthoracic echocardiogram was performed (2D, M-mode, spectral and color flow Doppler). The study was technically difficult with many images being suboptimal in quality. Reason For Study: LV Function, size, wall thickness,Valve Function Ordering Physician: EULA ACE Performed By: Sandra Loera Interpretation Summary Left ventricular systolic function is mildly reduced. The Ejection Fraction estimate is 40-45% Doppler measurements suggest pseudonormalized left ventricular relaxation, which is associated with grade II/IV or mild to moderate diastolic dysfunction There is mild concentric left ventricular hypertrophy. The left ventricle is grossly normal size. There is apical wall akinesis The right ventricular systolic function is normal. The right atrium is normal in size The left atrium is mildly dilated. There is a trace amount of mitral regurgitation There is no mitral valve stenosis. There is mild aortic stenosis There is a peak gradient of 15-20 mm of Hg. No aortic regurgitation is present. There is no tricuspid stenosis. No tricuspid regurgitation. There is no pericardial effusion. MMode/2D Measurements & Calculations RVDd: 3.0 cm LVIDd: 5.6 cmFS: 28.1 % Ao root diam: 3.3 cm IVSd: 1.1 cm LVIDs: 4.0 cmEDV(Teich): 151.8 ml LVPWd: 1.1 cmESV(Teich): 70.3 ml Ao root area: 8.4 cm2 EF(Teich): 53.7 % LA dimension: 3.2 cm LVOT diam: 2.1 cm LVOT area: 3.3 cm2 Doppler Measurements & Calculations MV E max phil: MV P1/2t max phil: Ao V2 max: LV V1 max P.9 cm/sec 76.5 cm/sec 202.2 cm/sec 5.6 mmHg MV A max phil: MV P1/2t: 49.3 msec Ao max PG: LV V1 max: 97.5 cm/sec MVA(P1/2t): 4.5 cm2 16.4 mmHg 117.8 cm/sec MV E/A: 0.78 MV dec slope: LESLY(V,D): 1.9 cm2 454.8 cm/sec2 PA V2 max: 121.5 cm/sec PA max P.9 mmHg Left Ventricle The left ventricle is grossly normal size. There is mild concentric left ventricular hypertrophy. Left ventricular systolic function is mildly reduced. The Ejection Fraction estimate is 40-45%. Doppler measurements suggest pseudonormalized left ventricular relaxation, which is associated with grade II/IV or mild to moderate diastolic dysfunction. There is apical wall akinesis. Right Ventricle The right ventricle is grossly normal size. There is normal right ventricular wall thickness. The right ventricular systolic function is normal. Atria The right atrium is normal in size. The left atrium is mildly dilated. Interarterial septum not well visualized and not well dopplered. Cannot comment on ASD/PFO presence. Mitral Valve The mitral valve is not well visualized. There is no mitral valve stenosis. There is a trace amount of mitral regurgitation. Aortic Valve The aortic valve is mildly calcified. There is mild aortic stenosis. There is a peak gradient of 15-20 mm of Hg. No aortic regurgitation is present. Tricuspid Valve The tricuspid valve is not well visualized secondary to technical limitations. There is no tricuspid stenosis. No tricuspid regurgitation. Pulmonic Valve The pulmonic valve is not well visualized. Great Vessels The aortic root is not well visualized but is probably normal size. The inferior vena cava appeared normal and decreased > 50% with respiration (RAP 5-10 mmHg). Effusions There is no pericardial effusion. : EULA ACE > Stan Lozano
[2017-08-30] MEDS: LISINOPRIL 10 MG TABLET PO SCH (20:51)
[2017-08-30] MEDS: ATORVASTATIN CALCIUM 40 MG TABLET PO SCH (20:51)
[2017-08-30] MEDS ORDERED: LORATADINE 10 MG TABLET PO ONE (21:30)
[2017-08-30] MEDS ORDERED: METOPROLOL SUCCINATE 25 MG TAB.SR.24H PO SCH (22:00)
[2017-08-31] MEDS: LANSOPRAZOLE 15 MG TAB.RAP.DR PO SCH (05:56)
[2017-08-31 08:22] VITALS: BP 117/64
[2017-08-31] MEDS ORDERED: MULTIVITAMINS W-IRON TABLET, CHEWABLE PO SCH (10:00)
[2017-08-31] MEDS ORDERED: OMEGA-3 ACID ETHYL ESTERS 1 GM CAPSULE PO SCH (10:00)
[2017-08-31] MEDS ORDERED: LORATADINE 10 MG TABLET PO SCH (10:00)
--- NOTE | 2017-08-31 10:19 | EKG REPORT ---
SEVERITY:- ABNORMAL ECG - SINUS RHYTHM PROBABLE ANTEROSEPTAL INFARCT, AGE INDETERM LATERAL LEADS ARE ALSO INVOLVED : Confirmed by: Stan Lozano 31-Aug-2017 10:18:58
--- NOTE | 2017-08-31 11:34 | PDOC PROGRESS REPORT ---
Subjective Progress Note for:: 08/31/17 Subjective:: Patient seems to be doing better. Patient had ambulated in the hallway without any symptoms. Pt is denying any chest arm or neck discomfort. Patient denying any PND, orthopnea. Patient denied any sustained palpitations, dizziness, syncope, near syncope. Patient denying any fever chills. Patient denying any other significant discomfort. Patient is maintaining sinus rhythm. Review of systems: Rest review of systems negative. Medications: Medications have been reviewed. Reason For Visit: CHEST PAIN Physical Exam Vital Signs: Temp Pulse Resp BP Pulse Ox 97.8 F 75 20 117/64 96 08/31/17 08:36 08/31/17 08:36 08/31/17 08:36 08/31/17 08:36 08/31/17 08:36 Intake & Output 08/30/17 08/31/17 09/01/17 06:59 06:59 07:59 Intake Total 200 650 Balance 200 650 Weight 128.5 kg 125.5 kg Exam: GENERAL: well-nourished and in no acute distress. Alert and oriented x3 HEAD: Atraumatic, normocephalic. EYES: Pupils equal round and reactive to light, extraocular movements intact, sclera anicteric, conjunctiva are normal. ENT: TMs normal, nares patent, oropharynx clear without exudates. Moist mucous membranes. No oral ulcerations or bleeding gums noted NECK: supple without lymphadenopathy. Trachea is central. No cervical or axillary lymphadenopathy noted. Carotids are 2+, JVD WNL LUNGS: Respiration seems nonlabored, no significant accessory muscle action noted. Breath sounds clear to auscultation bilaterally and equal noted. No wheezes rales or rhonchi noted. No significant dullness noted on percussion. CHEST: Palpation of the chest wall shows no significant chest wall tenderness. No other significant abnormalities noted. 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 ABDOMEN: Soft, no significant tenderness appreciated, normoactive bowel sounds. No guarding, no rebound. No rigidity noted . No masses appreciated. EXTREMITIES: Pedal pulses are 1-2+, no calf tenderness noted. No clubbing or cyanosis.trace pedal edema noted NEUROLOGICAL: Focused neurological exam showed no significant neurologic deficit. Normal speech, no focal weakness appreciated. PSYCH: Normal mood, normal affect. Judgment and insight within normal limits. SKIN: No significant ecchymosis, skin is noted to be warm. MUSCULOSKELETAL EXAM: No significant acute joint swelling noted. Results Laboratory Results: 08/30/17 04:39 08/30/17 06:36 08/29/17 08/30/17 21:20 10:08 Troponin I < 0.012 < 0.012 EKG Comments: Telemetry shows sinus rhythm without any sustained tachycardia or bradycardia. Impressions: Chest X-Ray 08/29/17 16:18 IMPRESSION: NO ACUTE RADIOGRAPHIC FINDING IN THE CHEST. Assessment & Plan - Diagnosis (1) Chest pain Qualifiers: Chest pain type: other chest pain Qualified Code(s): R07.89 - Other chest pain; R07.8 - Other chest pain Is this a current diagnosis for this admission?: Yes (2) Hyperlipemia Qualifiers: Hyperlipidemia type: unspecified Qualified Code(s): E78.5 - Hyperlipidemia , unspecified Is this a current diagnosis for this admission?: Yes (3) Hypertension Qualifiers: Hypertension type: essential hypertension Qualified Code(s): I10 - Essential (primary) hypertension Is this a current diagnosis for this admission?: Yes (4) Unstable angina Is this a current diagnosis for this admission?: Yes (5) Obesity Qualifiers: Obesity type: unspecified obesity type Obesity classification: unspecified obesity classification Is this a current diagnosis for this admission?: Yes - Notes Notes: Chest pain: Resolved. Nuclear stress test shows predominantly fixed defect with minimal surrounding ischemia. Patient currently asymptomatic. LVEF is somewhat low. Patient advised aggressive risk factor modification and medical management. In this regard he was also advised to schedule a sleep study. Hyperlipidemia: LDL goal is less than 70. Recommend statin therapy at least intermediate or high dose, of high potency status. Periodic lipid panel and liver panel is indicated. Patient to report any significant muscle discomfort or other side effects. Hypertension: Reasonably well controlled. Blood pressure goal in this patient is 135/85 or less. This was discussed with the patient. Currently blood pressure under reasonable control. Better medication for this patient are OLIVER inhibitor/ARB/beta pa etc. discussed side effects of uncontrolled hypertension and also severe hypotension. Unstable angina: Stabilized. No further chest pains. Patient ready for discharge. Obesity: Patient encouraged in weight loss. Coronary artery disease: Patient has history of coronary artery bypass graft surgery and stent placement. Currently is stable. Medical management has been optimized. - Time Time Spent with patient: Nuclear stress test results were again reviewed with the patient. Diagrams made , explained scar and ischemia. 2D echo results discussed. Time with patient: Greater than 35 minutes - CODE STATUS was discussed, patient remains full code. Surrogate decision-maker Sammie Sandoval, patient's girlfriend. Multiple medical problems were addressed. More than 50% of the time spent coordinating care, discussing management plans with involved caregivers. Management plans discussed with involved personnels. Medical decision making was of moderate to high complexity, patient's has multiple comorbidities. Medications reviewed and adjusted accordingly: Yes
--- NOTE | 2017-09-19 20:52 | PDOC DISCHARGE SUMMARY ---
General - Admit/Disc Date/PCP Admission Date/Primary Care Provider: 08/29/17 17:45 LETICIA RANKIN MD Discharge Date: 08/31/17 - Discharge Diagnosis (1) Chest pain Is this a current diagnosis for this admission?: Yes Summary: L sided chest pain relieved with 2 SL nitro and 324mg ASA. ECHOcardiogram shows LVEF 45%, grade II diastolic dysfunction, apical wall akinesis. Cardiolite stress test shows probable history of DC due to LV apex akinesis and decreased uptake. Cardiac enzymes negative. EKG showed NSR, t wave inversion in leads v4- 6. Relatively normal cardiac workup. Patient was discharged home on ASA and increased statin therapy. (2) Hypertension Is this a current diagnosis for this admission?: Yes Summary: Patient has a history of HTN. Continued home dose antihypertensives. No changes made. Patient remained NORMOtensive while inpatient (3) Hyperlipemia Is this a current diagnosis for this admission?: Yes Summary: Patient has a history of HLD. Increased dose of statin therapy for better cardiac protection and - Additional Information Resuscitation Status: Full Code Discharge Diet: As Tolerated, Cardiac Discharge Activity: Activity As Tolerated Prescriptions: Atorvastatin Calcium [Lipitor 80 mg Tablet] 80 mg PO QHS #30 tablet Home Medications: Amlodipine Besylate [Norvasc 5 mg Tablet] 5 mg PO DAILY 08/30/17 Aspirin [Aspirin 81 mg Chewable Tablet] 81 mg PO DAILY 08/30/17 Lisinopril [Prinivil 10 mg Tablet] 10 mg PO QHS 08/30/17 Loratadine [Claritin 10 mg Tablet] 10 mg PO DAILYP PRN 08/30/17 Metoprolol Tartrate [Lopressor 100 mg Tablet] 100 mg PO DAILY 08/30/17 Multivit with Iron,Minerals [Spectravite Senior] 1 each PO DAILY 08/30/17 Nitroglycerin [Nitrostat 0.4 mg (1/150 Gr) Tabs 25/Bottle] 1 tab SL Q5MP PRN 03/11 [place]-3 Acid Ethyl Esters [Lovaza 1 gm Capsule] 1 gm PO DAILY 08/30/17 Omeprazole 20 mg PO Q6AM 08/30/17 Pioglitazone HCl [Actos] 30 mg PO QAM 08/30/17 Vit C/E/Zn/Coppr/Lutein/Zeaxan [Preservision Areds 2 Softgel] 1 each PO DAILY Atorvastatin Calcium [Lipitor 80 mg Tablet] 80 mg PO QHS #30 tablet 08/31/17 Lisinopril [Prinivil 10 mg Tablet] 10 mg PO QHS tablet 08/31/17 History of Present Illness Patient complains of: chest pain History of Present Illness: DINORA SALDANA is a 77 year old male who presents to the emergency department with left anterior chest wall pressure/tightness x 1 day. The patient states that the pain is centered on the left side of his chest, it is nonradiating. He denies nausea, vomiting, dizziness, shortness of breath, vision changes with episodes of chest pain. The patient states that his chest pain began when he was going to the bathroom, and his pain has been intermittent ever since then. EMS transported the patient to the emergency department, en route the patient received 1 sublingual nitro and 325 mg ASA. His chest pain was mildly relieved , but reoccurred while he was in the emergency department. Patient was given another dose of sublingual nitro and he states that he has been chest pain-free since that time. EKG shows normal sinus rhythm with T-wave inversion in leads V4-6. Initial troponin was < 0.012. Chest x-ray benign. PMH includes DM, HTN, HLD, DC (1986), 4 vessel CABG (1989), Stent x 1 (2009). Most recent stress test and echocardiogram completed in November 2016 Hospital Course Hospital Course: as above Physical Exam Vital Signs: Temp Pulse Resp BP Pulse Ox 97.8 F 75 20 117/64 96 08/31/17 08:36 08/31/17 08:36 08/31/17 08:36 08/31/17 08:36 08/31/17 08:36 General appearance: PRESENT: no acute distress, morbidly obese Head exam: PRESENT: atraumatic, normocephalic Eye exam: PRESENT: conjunctiva pink, EOMI, PERRLA. ABSENT: scleral icterus Ear exam: PRESENT: normal external ear exam Mouth exam: PRESENT: moist, tongue midline Neck exam: ABSENT: carotid bruit, JVD, lymphadenopathy, thyromegaly Respiratory exam: PRESENT: clear to auscultation randy. ABSENT: rales, rhonchi, wheezes Cardiovascular exam: PRESENT: RRR. ABSENT: diastolic murmur, rubs, systolic murmur Pulses: PRESENT: normal radial pulses, normal dorsalis pedis pul Vascular exam: PRESENT: normal capillary refill GI/Abdominal exam: PRESENT: normal bowel sounds, soft. ABSENT: distended, guarding, mass, organolmegaly, rebound, tenderness Rectal exam: PRESENT: deferred Extremities exam: PRESENT: full ROM. ABSENT: calf tenderness, clubbing, pedal edema Neurological exam: PRESENT: alert, awake, oriented to person, oriented to place , oriented to time, oriented to situation Psychiatric exam: PRESENT: appropriate affect, normal mood Skin exam: PRESENT: dry, intact, warm. ABSENT: cyanosis, rash Results Laboratory Results: 08/30/17 04:39 08/30/17 06:36 08/29/17 08/30/17 21:20 10:08 Troponin I < 0.012 < 0.012 Impressions: Chest X-Ray 08/29/17 16:18 IMPRESSION: NO ACUTE RADIOGRAPHIC FINDING IN THE CHEST. 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 continue all home medications, increase statin therapy. Counseled about morbid obesity and importance of adopting a healthier lifestyle Time Spent: Less than 30 Minutes
== END 2017-08-31 09:26 | disposition home or self-care (01) ==
LOC: ER 16:12 → EH 17:45 → 4N 20:08
PROVIDERS: ADMIT Emergency Medicine; ATTEND Emergency Medicine
DX: R07.89 Other chest pain (principal); I10 Essential (primary) hypertension; E78.5 Hyperlipidemia, unspecified; E11.9 Type 2 diabetes mellitus without complications; I25.2 Old myocardial infarction; E66.01 Morbid (severe) obesity due to excess calories; I25.110 Atherosclerotic heart disease of native coronary artery with unstable angina pectoris; K21.9 Gastro-esophageal reflux disease without esophagitis; Z68.38 Body mass index [BMI] 38.0-38.9, adult; Z95.5 Presence of coronary angioplasty implant and graft; Z95.1 Presence of aortocoronary bypass graft; Z79.84 Long term (current) use of oral hypoglycemic drugs; Z90.49 Acquired absence of other specified parts of digestive tract; Z87.891 Personal history of nicotine dependence; Z82.49 Family history of ischemic heart disease and other diseases of the circulatory system
CPT/HCPCS: 36415; 71045; 78452; 80048; 80053; 82550; 82553; 84100; 84484; 85025; 93005; 93010; 93017; 93306; 96360; 96361; 99285; A9500; G0378; J0280; J2785; J3490; J7030; Q9969

== ENCOUNTER 2018-04-13 13:35 | Emergency (ER) | payer MEDICARE, OTHER ==
[2018-04-13] MEDS ORDERED: ASPIRIN 81 MG TABLET, CHEWABLE PO ONE (14:00)
[2018-04-13 14:20] LABS: ABSOLUTE BASOPHILS # (AUTO) 0.1 10^3/uL (0.0-0.2); ABSOLUTE EOSINOPHILS # (AUTO) 0.1 10^3/uL (0.0-0.6); ABSOLUTE LYMPHOCYTES (AUTO) 2.3 10^3/uL (0.5-4.7); ABSOLUTE NEUT (AUTO) 5.2 10^3/uL (1.7-8.2); BASOPHILS % (AUTO) 0.6 % (0-2); EOSINOPHILS % (AUTO) 1.2 % (0-6); HEMATOCRIT 42.4 % (37.9-51.0); HEMOGLOBIN 14.1 g/dL (13.5-17.0); LYMPHOCYTES % (AUTO) 26.9 % (13-45); MEAN CORPUSCULAR HEMOGLOBIN 29.1 pg (27.0-33.4); MEAN CORPUSCULAR HGB CONC 33.3 g/dL (32.0-36.0); MEAN CORPUSCULAR VOLUME 88 fl (80-97); PLATELET COUNT 310 10^3/uL (150-450); RED BLOOD COUNT 4.85 10^6/uL (4.35-5.55); RED CELL DISTRIBUTION WIDTH 14.5 % (11.5-14.0); SEGMENTED NEUTROPHILS % (AUTO) 60.3 % (42-78); TOTAL CELLS COUNTED % (AUTO) 100 %; WHITE BLOOD COUNT 8.7 10^3/uL (4.0-10.5)
--- NOTE | 2018-04-13 14:28 | ER Document Report ---
ED General - General Chief Complaint: Chest Pain Stated Complaint: CHEST PAIN Time Seen by Provider: 04/13/18 13:59 Mode of Arrival: Medic Information source: Patient, Relative, [facility] Records Notes: 78-year-old male with congestive heart failure, coronary artery disease, hypertension, type 2 diabetes presents with complaint of chest pain that started 3 days prior to arrival. Pain is located substernally, described as a sharp pain that was initially intermittent but has been constant since he awoke today at 6 AM, 8 hours prior to arrival. Patient also reports left shoulder pain. He said that started 1 week prior to this visit. 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 Patient denies any associated dizziness, diaphoresis, shortness of breath. Patient states that he did have an episode of nausea but no vomiting. He is not currently nauseous. Patient has already taken aspirin today. He does report a normal stress test in 2017. Patient reports stent placement in 2013. TRAVEL OUTSIDE OF THE [place] IN LAST 30 DAYS: No - HPI Onset: Other Onset/Duration: Gradual, Persistent Quality of pain: Stabbing Severity: Mild Pain Level: 1 Associated symptoms: Chest pain, Nausea. denies: Productive cough, Headache, Vomiting, Shortness of breath, Weakness Exacerbated by: Movement Relieved by: Remaining still Similar symptoms previously: No Recently seen / treated by doctor: No - Related Data Allergies/Adverse Reactions: acetaminophen [From Excedrin P.M.] Allergy (Severe, Verified 08/30/17 05:17) TONGUE SWELLING diphenhydramine HCl [From Excedrin P.M.] Allergy (Severe, Verified 08/30/17 05: 16) TONGUE SWELLING diphenhydramine citrate [From Excedrin P.M.] Allergy (Verified 08/30/17 05:17) TONGUE SWELLING Past Medical History - General Information source: Patient, Relative, [facility] Records - Social History Smoking Status: Former Smoker Frequency of alcohol use: None Drug Abuse: None Lives with: Spouse/Significant other Family History: CAD, Hyperlipidemia Patient has suicidal ideation: No Patient has homicidal ideation: No - Past Medical History Cardiac Medical History: Reports: Hx Congestive Heart Failure, Hx Coronary Artery Disease, Hx Heart Attack, Hx Hypertension Endocrine Medical History: Reports: Hx Diabetes Mellitus Type 2 Renal/ Medical History: Denies: Hx Peritoneal Dialysis GI Medical History: Reports: Hx Gastroesophageal Reflux Disease Past Surgical History: Reports: Hx Cardiac Catheterization - with stents, Hx Cardiac Surgery - bypass 1989, Hx Cholecystectomy - Immunizations Hx Pneumococcal Vaccination: 06/24/09 Review of Systems - Review of Systems Notes: REVIEW OF SYSTEMS: CONSTITUTIONAL : Denies fever, chills, or sweats. Denies recent illness. Denies weight loss, recent hospitalizations. EENT: Denies visual changes, eye pain. Denies sore throat, oral lesions, difficulty swallowing. CARDIOVASCULAR: Denies palpitations. Denies lower extremity edema. RESPIRATORY: Denies cough. Denies shortness of breath, wheezing. GASTROINTESTINAL: Denies abdominal pain or distention. Denies vomiting, or diarrhea. Denies blood in vomitus, stools, or per rectum. Denies black, tarry stools. Denies constipation. GENITOURINARY: Denies difficulty urinating, painful urination, frequency, blood in urine, testicular pain or penile discharge. MUSCULOSKELETAL: Denies back or neck pain or stiffness. Denies joint pain or swelling. SKIN: Denies rash, lesions or sores. HEMATOLOGIC : Denies easy bruising or bleeding. LYMPHATIC: Denies swollen glands. NEUROLOGICAL: Denies confusion or altered mental status. Denies loss of consciousness. Denies dizziness or lightheadedness. Denies weakness or paralysis. Denies problems difficulty with ambulation, slurred speech. Denies sensory loss, numbness, or tingling. Denies seizures. PSYCHIATRIC: Denies anxiety or stress. Denies depression, suicidal ideation, or Physical Exam - Vital signs Vitals: Resp Pulse Ox 18 97 04/13/18 13:38 04/13/18 13:38 - Notes Notes: PHYSICAL EXAMINATION: GENERAL: Well-appearing, well-nourished and in no acute distress. HEAD: Atraumatic, normocephalic. EYES: Pupils equal round and reactive to light, extraocular movements intact, sclera anicteric, conjunctiva are normal. ENT: Nares patent, oropharynx clear without exudates. Moist mucous membranes. NECK: Normal range of motion, supple without lymphadenopathy LUNGS: Breath sounds clear to auscultation bilaterally and equal. No wheezes rales or rhonchi. HEART: Regular rate and rhythm without murmurs. Pulses equal throughout. Reproducible chest wall tenderness with palpation over the left chest and sternum. No ecchymosis, crepitus. ABDOMEN: Soft, nontender, nondistended abdomen. No guarding, no rebound. No masses appreciated. Musculoskeletal: No pitting edema. Left shoulder pain with range of motion. No obvious deformity. NEUROLOGICAL: Cranial nerves grossly intact. Normal speech, normal gait. Normal sensory, motor exams PSYCH: Normal mood, normal affect. SKIN: Warm, Dry, normal turgor, no rashes or lesions noted. Course - Re-evaluation Re-evalutation: Laboratory 04/13/18 04/13/18 04/13/18 13:55 13:55 13:55 WBC 8.7 RBC 4.85 Hgb 14.1 Hct 42.4 MCV 88 MCH 29.1 MCHC 33.3 RDW 14.5 H Plt Count 310 Seg Neutrophils % 60.3 Lymphocytes % 26.9 Monocytes % 11.0 Eosinophils % 1.2 Basophils % 0.6 Absolute Neutrophils 5.2 Absolute Lymphocytes 2.3 Absolute Monocytes 1.0 Absolute Eosinophils 0.1 Absolute Basophils 0.1 Sodium 140.1 Potassium 4.1 Chloride 103 Carbon Dioxide 28 Anion Gap 9 BUN 13 Creatinine 0.61 Est GFR ( Amer) > 60 Est GFR (Non-Af Amer) > 60 Glucose 103 Calcium 9.5 Total Bilirubin 1.3 Direct Bilirubin 0.3 Neonat Total Bilirubin Not Reportable Neonat Direct Bilirubin Not Reportable Neonat Indirect Bili Not Reportable AST 22 ALT 21 Alkaline Phosphatase 100 Creatine Kinase 79 CK-MB (CK-2) 1.63 Troponin I < 0.012 NT-Pro-B Natriuret Pep 338 Total Protein 6.6 Albumin 4.0 04/13/18 17:56 WBC RBC Hgb Hct MCV MCH MCHC RDW Plt Count Seg Neutrophils % Lymphocytes % Monocytes % Eosinophils % Basophils % Absolute Neutrophils Absolute Lymphocytes Absolute Monocytes Absolute Eosinophils Absolute Basophils Sodium Potassium Chloride Carbon Dioxide Anion Gap BUN Creatinine Est GFR ( Amer) Est GFR (Non-Af Amer) Glucose Calcium Total Bilirubin Direct Bilirubin Neonat Total Bilirubin Neonat Direct Bilirubin Neonat Indirect Bili AST ALT Alkaline Phosphatase Creatine Kinase CK-MB (CK-2) Troponin I < 0.012 NT-Pro-B Natriuret Pep Total Protein Albumin 04/13/18 18:58 78-year-old male presents with complaints of chest wall pain and left shoulder pain. 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 Patient's chest pain started 3 days ago and as is described as stabbing, worse with movement and reproducible on exam. Upon arrival patient was placed on quality assurance monitor final and EKG was done which does show some T wave inversions which have been present on multiple other EKGs. Exam is significant for well-appearing male in no acute distress his chest pain is reproducible with palpation of the sternum and left chest. Patient does have pain with range of motion of the left shoulder. Patient did receive nitro in route and states that it did not relieve his pain. He has already taken aspirin prior to arrival. Patient received morphine, Zofran and on reevaluation reports some improvement of his chest pain and resolution of his shoulder pain. Patient was monitored for over 5 hours without any events. Cardiac enzymes were obtained and are negative x2. CBC is without leukocytosis , anemia. CMP is without significant electrolyte abnormalities. I did discuss admission with the patient who states that he he agrees at this is not likely coming from his heart. I have low suspicion for ACS, aortic dissection, pneumonia, pneumothorax. I believe the patient's pain is musculoskeletal especially with the recent story of heavy lifting. Patient requesting a short course of [place] for home. 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 Marie within the next 3-5 days. Patient was encouraged to return with any concerns. Patient was evaluated and treated as appropriate for the patient's presenting symptoms and complaint, with consideration of any critical or life threatening conditions that may be associated with their obtained history and exam as noted above. All results were discussed with patient. Patient provided the opportunity to ask questions, and express concerns. Patient was educated on treatments based on their presumed diagnosis as noted above. At this time we will discharge the patient with return precautions and follow-up recommendations. Verbal discharge instructions given a the bedside. Medication warnings reviewed. Patient is in agreement with this plan and has verbalized understanding of return precautions. After careful consideration I feel that that patient can be safely discharged from the emergency department, they were advised to followup with a primary care physician in 2-3 days. Dictation on this chart was performed using voice recognition software and may result in unintended grammatical, spelling, syntax or errors. 04/15/18 11:51 - Vital Signs Vital signs: Temp Pulse Resp BP Pulse Ox 98.1 F 74 16 145/70 H 96 04/13/18 13:41 04/13/18 13:41 04/13/18 19:07 04/13/18 19:07 04/13/18 19:07 - Laboratory Result Diagrams: 04/13/18 13:55 04/13/18 13:55 Laboratory results interpreted by me: 04/13/18 13:55 RDW 14.5 H - Diagnostic Test Radiology reviewed: Image reviewed, Reports reviewed - EKG Interpretation by Me EKG shows normal: Sinus rhythm Rate: Normal Rhythm: NSR - T wave inversions in the 4, 5 unchanged from previous When compared to previous EKG there are: No significant change Discharge - Discharge Clinical Impression: Chest wall pain Left shoulder strain Qualifiers: Encounter type: initial encounter Qualified Code(s): S46.912A - Strain of unspecified muscle, fascia and tendon at shoulder and upper arm level, left arm , initial encounter Hypertension Qualifiers: Hypertension type: unspecified Qualified Code(s): I10 - Essential (primary) hypertension Obesity Qualifiers: Body mass index: unspecified BMI Condition: Good Disposition: HOME, SELF-CARE Instructions: Chest Wall Pain ([facility]), Shoulder Injury ([facility]) Additional Instructions: You were seen today for chest pain. The exact cause of your pain is unclear but I do think that this is secondary to recent overuse. I do believe your pain is musculoskeletal since it is reproducible and has been present for 3 days. However, based on your cardiac enzyme testing, chest x-ray, and EKG it does not appear that it is from an immediately life-threatening cause at this time. Although your testing here is normal is critical that you follow-up with your primary care physician for continued evaluation of this chest pain and possible stress testing. I recommended you see your physician within the next 24-48 hours to be evaluated for consideration of a stress test. Please return to emergency department immediately if you have worsening of your chest pain, shortness of breath, vomiting, become unable to exert yourself due to pain or difficulty breathing, you pass out, or have any pain that radiates into your arms, jaw, or back. Please also return if you have any additional symptoms that are concerning to you. Prescriptions: Tramadol HCl 50 mg PO Q12H #10 tablet Forms: Elevated Blood Pressure Referrals: LETICIA RANKIN MD [Primary Care Provider] - Follow up as needed
[2018-04-13 14:41] LABS: ALANINE AMINOTRANSFERASE 21 U/L (21-72); ALKALINE PHOSPHATASE 100 U/L (38-126); ANION GAP 9 (5-19); ASPARTATE AMINO TRANSFERASE 22 U/L (17-59); BILIRUBIN,DIRECT 0.3 mg/dL (0.0-0.4); BILIRUBIN,TOTAL 1.3 mg/dL (0.2-1.3); BLOOD UREA NITROGEN 13 mg/dL (7-20); CALCIUM 9.5 mg/dL (8.4-10.2); CARBON DIOXIDE 28 mmol/L (22-30); CHLORIDE 103 mmol/L (98-107); CREATINE KINASE 79 U/L (55-170); GLUCOSE 103 mg/dL (75-110); POTASSIUM 4.1 mmol/L (3.6-5.0); SODIUM 140.1 mmol/L (137-145); TOTAL PROTEIN 6.6 g/dL (6.3-8.2)
--- NOTE | 2018-04-13 14:46 | RADIOLOGY REPORT (SQ) ---
EXAM DESCRIPTION: CHEST SINGLE VIEW COMPLETED DATE/TIME: 04/13/2018 2:36 pm REASON FOR STUDY: chest pain COMPARISON: 01/24/2011 EXAM PARAMETERS: NUMBER OF VIEWS: One view. TECHNIQUE: Single frontal radiographic view of the chest acquired. RADIATION DOSE: NA LIMITATIONS: None. FINDINGS: LUNGS AND PLEURA: No opacities, masses or pneumothorax. No pleural effusion. MEDIASTINUM AND HILAR STRUCTURES: No masses. Contour normal. HEART AND VASCULAR STRUCTURES: Heart normal in size. Normal vasculature. BONES: No acute findings. HARDWARE: Midline surgical changes. OTHER: No other significant finding. IMPRESSION: NO ACUTE RADIOGRAPHIC FINDING IN THE CHEST. TECHNICAL DOCUMENTATION: JOB ID: [id number] [employer]- All Rights Reserved Reading location - IP/workstation name: [email or web address]
[2018-04-13 14:53] LABS: CREATINE KINASE MB 1.63 ng/mL (<4.55); NT PRO BNP 338 pg/mL (<450)
[2018-04-13 15:03] LABS: TROPONIN I < 0.012 ng/mL
[2018-04-13] MEDS: ONDANSETRON HCL INJ/PF 4 MG/2 ML SDV IV ONE ×2 (16:19→16:26)
[2018-04-13] MEDS: MORPHINE SULFATE 10 MG/ML INJ IV ONE ×2 (16:19→16:27)
--- NOTE | 2018-04-13 16:29 | EKG REPORT ---
SEVERITY:- ABNORMAL ECG - SINUS RHYTHM CONSIDER ANTEROSEPTAL INFARCT,OLD. ABNORMAL T, CONSIDER ISCHEMIA, LATERAL LEADS : Confirmed by: Thompson Russell MD 13-Apr-2018 16:28:33
[2018-04-13] MEDS ORDERED: KETOROLAC TROMETHAMINE INJ/PF 30 MG/1 ML SDV IV ONE ×2 (17:01→19:32)
[2018-04-13 19:34] VITALS: BP 145/70
== END 2018-04-13 19:45 | disposition home or self-care (01) ==
LOC: ER 13:35
DX: S46.912A Strain of unspecified muscle, fascia and tendon at shoulder and upper arm level, left arm, initial encounter (principal); R07.89 Other chest pain; M25.512 Pain in left shoulder; I10 Essential (primary) hypertension; R11.0 Nausea; I50.9 Heart failure, unspecified; I25.10 Atherosclerotic heart disease of native coronary artery without angina pectoris; E11.9 Type 2 diabetes mellitus without complications; X50.3XXA Overexertion from repetitive movements, initial encounter; Z87.891 Personal history of nicotine dependence
CPT/HCPCS: 93005; 99285; 96374; 96375; 36415; 82553; 82550; 85025; 80053; 84484; 83880; 71045; 93010; J2270; J2405

== ENCOUNTER 2020-03-01 08:13 | Emergency (ER) | payer MEDICARE, OTHER ==
--- NOTE | 2020-03-01 08:44 | ER Document Report ---
ED General - General Stated Complaint: FEVER,SOB,ACHES ALL OVER Time Seen by Provider: 03/01/20 08:16 Primary Care Provider: LETICIA RANKIN MD [Primary Care Provider] - Follow up as needed Notes: HPI: 80-year-old male with his girlfriend recently been admitted this week secondary to complications of coronavirus 19 who presents today with some fever, body aches, and nonproductive cough. He denies any headache, sore throat, abdominal pain, dysuria, or vomiting. One bout of nonbloody diarrhea. No recent antibiotics or travel. Patient denies any rash and has no other review of systems. ROS: See HPI All other review of systems reviewed and otherwise negative Reviewed vital signs and nursing note as charted by RN. PHYSICAL EXAM: CONSTITUTIONAL: Alert and oriented and responds appropriately to questions. Well-appearing; well-nourished HEAD: Normocephalic; atraumatic EYES: PERRL ENT: Normal nose; no rhinorrhea; moist mucous membranes; pharynx without lesions noted NECK: Supple without meningismus; non-tender; no cervical lymphadenopathy, no masses CARD: Regular rate and rhythm; no murmurs; symmetric distal pulses RESP: Normal chest excursion without splinting or tachypnea; breath sounds clear and equal bilaterally; no wheezes, no rhonchi, no rales ABD/GI: Normal bowel sounds; elevated BMI; soft, non-tender; no palpable organomegaly or masses BACK: The back appears normal and is non-tender to palpation EXT: Normal ROM in all joints; non-tender to palpation; no edema SKIN: No acute lesions noted NEURO: CN 2-12 intact; 5/5 bilateral upper and lower extremity strength with sensation intact to light touch PSYCH: The patient's mood and manner are appropriate. Grooming and personal hygiene are appropriate. TRAVEL OUTSIDE OF THE [place] IN LAST 30 DAYS: No - Related Data Allergies/Adverse Reactions: acetaminophen [From Excedrin P.M.] Allergy (Severe, Verified 08/30/17 05:17) TONGUE SWELLING diphenhydramine HCl [From Excedrin P.M.] Allergy (Severe, Verified 08/30/17 05:16) TONGUE SWELLING diphenhydramine citrate [From Excedrin P.M.] Allergy (Verified 08/30/17 05:17) TONGUE SWELLING Past Medical History - Social History Smoking Status: Unknown if Ever Smoked Family History: CAD, Hyperlipidemia - Past Medical History Cardiac Medical History: Reports: Hx Congestive Heart Failure, Hx Coronary Artery Disease, Hx Heart Attack, Hx Hypertension Endocrine Medical History: Reports: Hx Diabetes Mellitus Type 2 Renal/ Medical History: Denies: Hx Peritoneal Dialysis GI Medical History: Reports: Hx Gastroesophageal Reflux Disease Past Surgical History: Reports: Hx Cardiac Catheterization - with stents, Hx C ardiac Surgery - bypass 1989, Hx Cholecystectomy - Immunizations Hx Pneumococcal Vaccination: 06/24/09 Physical Exam - Vital signs Vitals: Temp 99.4 F 03/01/20 08:42 Course - Re-evaluation Re-evalutation: 03/01/20 08:43 Given the above history and physical we will initiate a septic work-up given the reported temperature of 101 at home, as well as order a coronavirus 19 test and a portable x-ray with a lactic acid and blood cultures obtained. I would like to assess for the possibility of pneumonia, urinary tract infection, or coronavirus testing. The patient was evaluated during the global COVID-19 pandemic and that diagnosis was suspected/considered upon their initial presentation. Their evaluation, treatment and testing was consistent with current guidelines for patients who present with complaints or symptoms that may be related to COVID-19. 03/01/20 09:09 Heart rate 84, normal sinus rhythm, left axis deviation, inverted T waves in leads I, aVL, V2 through V6. 03/01/20 09:10 Reviewed the most previous EKG from March 2018 showing no obvious appreciable change. 03/01/20 10:15 Patient looks excellent. Good room air oxygen saturation. Patient is afebrile here but did take Tylenol prior to arrival. Troponin as recorded. Patient denies any chest discomfort. I do believe ACS, PE, dissection to be unlikely. No obvious signs of cardiomegaly or heart failure. Patient will be discharged home with strict return precautions pending coronavirus results and quarantine instructions. - Vital Signs Vital signs: Temp Pulse Resp BP Pulse Ox 99.4 F 03/01/20 08:42 - Laboratory Result Diagrams: 03/01/20 08:23 03/01/20 08:23 Laboratory results interpreted by me: 03/01/20 03/01/20 08:23 08:23 RDW 14.4 H Lymph % (Auto) 12.8 L Sodium 131.3 L Glucose 147 H Total Bilirubin 1.5 H Total Protein 6.0 L Discharge - Discharge Clinical Impression: Cough, Exposure to COVID-19 virus Fever Qualifiers: Fever type: unspecified Qualified Code(s): R50.9 - Fever, unspecified Condition: Good Disposition: HOME, SELF-CARE Instructions: COVID-19 Guidance for Persons Under Investigation Additional Instructions: Come back immediately for any worsening cough, shortness of breath, fevers, vomiting, chest pain, leg swelling, or any other acute problems. Please make sure that you quarantine as instructed until results have returned. Referrals: LETICIA RANKIN MD [Primary Care Provider] - Follow up as needed
[2020-03-01 08:45] LABS: ABSOLUTE MONOCYTES (AUTO) 0.8 10^3/uL (0.1-1.4); ABSOLUTE NEUT (AUTO) 5.7 10^3/uL (1.7-8.2); BASOPHILS % (AUTO) 0.4 % (0-2); HEMOGLOBIN 13.8 g/dL (13.5-17.0); LYMPHOCYTES % (AUTO) 12.8 % (13-45); MEAN CORPUSCULAR HEMOGLOBIN 30.8 pg (27.0-33.4); MEAN CORPUSCULAR HGB CONC 35.3 g/dL (32.0-36.0); MEAN CORPUSCULAR VOLUME 87 fl (80-97); MONOCYTES % (AUTO) 10.4 % (3-13); PLATELET COUNT 206 10^3/uL (150-450); RED BLOOD COUNT 4.47 10^6/uL (4.35-5.55); RED CELL DISTRIBUTION WIDTH 14.4 % (11.5-14.0); SEGMENTED NEUTROPHILS % (AUTO) 76.4 % (42-78); TOTAL CELLS COUNTED % (AUTO) 100 %; WHITE BLOOD COUNT 7.5 10^3/uL (4.0-10.5)
--- NOTE | 2020-03-01 08:52 | EKG REPORT ---
SEVERITY:- ABNORMAL ECG - SINUS RHYTHM BORDERLINE LEFT AXIS DEVIATION ABNORMAL T, CONSIDER ISCHEMIA, LATERAL LEADS : Confirmed by: Paresh Mccray MD 01-Mar-2020 08:51:59
[2020-03-01 09:09] LABS: ALBUMIN 3.6 g/dL (3.5-5.0); ALKALINE PHOSPHATASE 76 U/L (38-126); ANION GAP 9 (5-19); ASPARTATE AMINO TRANSFERASE 31 U/L (17-59); BILIRUBIN,DIRECT 0.3 mg/dL (0.0-0.4); BILIRUBIN,TOTAL 1.5 mg/dL (0.2-1.3); BLOOD UREA NITROGEN 15 mg/dL (7-20); CALCIUM 8.7 mg/dL (8.4-10.2); CARBON DIOXIDE 24 mmol/L (22-30); CHLORIDE 98 mmol/L (98-107); GLUCOSE 147 mg/dL (75-110); POTASSIUM 4.2 mmol/L (3.6-5.0)
[2020-03-01 09:21] LABS: NT PRO BNP 332 pg/mL (<450)
[2020-03-01 09:27] LABS: TROPONIN I < 0.012 ng/mL
--- NOTE | 2020-03-01 09:28 | RADIOLOGY REPORT (SQ) ---
EXAM DESCRIPTION: CHEST SINGLE VIEW IMAGES COMPLETED DATE/TIME: 03/01/2020 9:01 am REASON FOR STUDY: 5; sob COMPARISON: 04/13/2018 EXAM PARAMETERS: NUMBER OF VIEWS: One view. TECHNIQUE: Single frontal radiographic view of the chest acquired. RADIATION DOSE: NA LIMITATIONS: None. FINDINGS: LUNGS AND PLEURA: No opacities, masses or pneumothorax. No pleural effusion. MEDIASTINUM AND HILAR STRUCTURES: No masses. Contour normal. HEART AND VASCULAR STRUCTURES: Heart normal in size. Normal vasculature. BONES: No acute findings. HARDWARE: CABG. OTHER: No other significant finding. IMPRESSION: NO ACUTE RADIOGRAPHIC FINDING IN THE CHEST. TECHNICAL DOCUMENTATION: JOB ID: [id number] 2010 [email or web address]- All Rights Reserved Reading location - IP/workstation name: [email or web address]
[2020-03-01] MEDS ORDERED: ACETAMINOPHEN 325 MG TABLET PO ONE (10:35)
[2020-03-01 12:07] VITALS: BP 127/67
== END 2020-03-01 12:33 | disposition home or self-care (01) ==
LOC: ER 08:13
DX: U07.1 COVID-19 (principal); R50.9 Fever, unspecified; R05 Cough; R06.02 Shortness of breath; M79.10 Myalgia, unspecified site; Z20.828 Contact with and (suspected) exposure to other viral communicable diseases; I11.0 Hypertensive heart disease with heart failure; I50.9 Heart failure, unspecified; I25.10 Atherosclerotic heart disease of native coronary artery without angina pectoris; E11.9 Type 2 diabetes mellitus without complications; Z90.49 Acquired absence of other specified parts of digestive tract; Z95.1 Presence of aortocoronary bypass graft; I25.2 Old myocardial infarction
CPT/HCPCS: 93005; 99285; 36415; 87040; 83605; 85025; 80053; 84484; 83880; 71045; 93010; U0003; A9270; C9803; 87635

== ENCOUNTER 2020-03-11 16:05 | Inpatient (IN) | payer MEDICARE, OTHER ==
--- NOTE | 2020-03-11 16:45 | ER Document Report ---
ED General - General Stated Complaint: CHEST PAIN/HEADACHE Time Seen by Provider: 03/11/20 16:22 Primary Care Provider: LETICIA RANKIN MD [Primary Care Provider] - Follow up as needed Mode of Arrival: Medic Information source: Patient Notes: 80-year-old male arrives by EMS after having chest pain upon awakening this morning. Patient was given 2 aspirin and 1 nitroglycerin underneath his tongue because of his diffuse anterior chest pain. He was diagnosed with coronavirus around 2 to 3 weeks ago. He denies any cough at this time. He has a history of MRSA VRE and CAD hypertension obesity hyperlipidemia and unstable angina. His girlfriend Deonna Wright is on [address] N. with coronavirus. 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 His EKG reveals sinus rhythm with some T wave inversion but otherwise no ST elevation no ST depression. He is not any distress in the room. He is in room #7 because of coronavirus precautions which is now a worldwide pandemic. TRAVEL OUTSIDE OF THE [place] IN LAST 30 DAYS: No - HPI Onset: This morning Onset/Duration: Sudden, Persistent Quality of pain: Achy Severity: Mild Pain Level: 2 Associated symptoms: Chest pain, Weakness Exacerbated by: Movement Relieved by: Denies Similar symptoms previously: Yes Recently seen / treated by doctor: Yes - Related Data Allergies/Adverse Reactions: acetaminophen [From Excedrin P.M.] Allergy (Severe, Verified 08/30/17 05:17) TONGUE SWELLING diphenhydramine HCl [From Excedrin P.M.] Allergy (Severe, Verified 08/30/17 05:16) TONGUE SWELLING diphenhydramine citrate [From Excedrin P.M.] Allergy (Verified 08/30/17 05:17) TONGUE SWELLING Past Medical History - General Information source: Patient - Social History Smoking Status: Unknown if Ever Smoked Cigarette use (# per day): No Chew tobacco use (# tins/day): No Smoking Education Provided: No Frequency of alcohol use: None Lives with: Family Family History: CAD, Hyperlipidemia Patient has suicidal ideation: No Patient has homicidal ideation: No - Past Medical History Cardiac Medical History: Reports: Hx Congestive Heart Failure, Hx Coronary Artery Disease, Hx Heart Attack, Hx Hypertension Endocrine Medical History: Reports: Hx Diabetes Mellitus Type 2 Renal/ Medical History: Denies: Hx Peritoneal Dialysis GI Medical History: Reports: Hx Gastroesophageal Reflux Disease Past Surgical History: Reports: Hx Cardiac Catheterization - with stents, Hx Cardiac Surgery - bypass 1989, Hx Cholecystectomy - Immunizations Hx Pneumococcal Vaccination: 06/24/09 Review of Systems - Review of Systems Constitutional: See HPI, Weakness, Recent illness. denies: Fever, Malaise, Weight gain, Weight loss EENT: No symptoms reported Cardiovascular: See HPI, Chest pain, Dyspnea, Dizziness, Lightheaded. denies: Palpitations, Heart racing, Orthopnea Respiratory: See HPI, Short of breath Male Genitourinary: No symptoms reported Musculoskeletal: No symptoms reported Skin: No symptoms reported Hematologic/Lymphatic: No symptoms reported Neurological/Psychological: See HPI, Weakness. denies: Confusion, Dementia, Depression, Anxiety, Hallucinations, Sensory change, Gait changes, Loss of power, Paralysis, Seizure, Lost consciousness, Headaches, Speech impairment, Numbness, Suicidal ideation, Tingling Physical Exam - Vital signs Interpretation: Tachypneic - General General appearance: Alert - HEENT Head: Normocephalic, Atraumatic Eyes: Normal Pupils: PERRL Sinus: Normal Nasal: Normal Mouth/Lips: Normal Mucous membranes: Normal Pharynx: Normal Neck: Normal - Respiratory Respiratory status: No respiratory distress Chest status: Tender Breath sounds: Decreased air movement Chest palpation: Normal - Cardiovascular Rhythm: Regular Heart sounds: Normal auscultation Murmur: No - Abdominal Inspection: Normal Distension: No distension Bowel sounds: Normal Tenderness: Nontender Organomegaly: No organomegaly - Rectal Prostate: Other - deferred - Genitourinary Scrotum: Other - deferred - Back Back: Normal - Extremities General upper extremity: Normal inspection General lower extremity: Normal inspection - Neurological Neuro grossly intact: Yes Cognition: Normal Orientation: AAOx4 [place] Coma Scale Eye Opening: Spontaneous Bharathi Coma Scale Verbal: Oriented Bharathi Coma Scale Motor: Obeys Commands Bharathi Coma Scale Total: 15 Speech: Normal Motor strength normal: LUE, RUE, LLE, RLE Sensory: Normal - Psychological Associated symptoms: Anxious - Skin Skin Temperature: Warm Skin Moisture: Dry Course - Laboratory Result Diagrams: 03/11/20 16:16 03/11/20 16:16 Laboratory results interpreted by me: 03/11/20 03/11/20 03/11/20 16:16 16:16 16:16 Plt Count 583 H Sodium 135.0 L Glucose 123 H AST 61 H ALT 82 H Alkaline Phosphatase 144 H NT-Pro-B Natriuret Pep 702 H Total Protein 6.2 L Albumin 3.4 L - Diagnostic Test Radiology reviewed: Reports reviewed - bilat lower lobe infiltrates - EKG Interpretation by Me EKG shows normal: Sinus rhythm Rate: Normal Rhythm: NSR - With heart rate 75 bpm with question of consider anteroseptal infarct because of nonspecific T wave abnormalities anterior leads inversion of T waves. There is no ST elevation or ST depression noted axis within normal limits. This was read by myself. Critical Care Note - Critical Care Note Comments: I spoke with Dr. Latanya Mejia she advises she was see the patient in room 7 Discharge - Discharge Clinical Impression: Pain of anterior chest wall with respiration, COVID-19, Bilateral pulmonary infiltrates on chest x-ray Chest pain Qualifiers: Chest pain type: unspecified Qualified Code(s): R07.9 - Chest pain, unspecified Condition: Fair Disposition: ADMITTED INPATIENT Admitting Provider: Jackie (Hospitalist) Unit Admitted: Telemetry Referrals: LETICIA RANKIN MD [Primary Care Provider] - Follow up as needed
[2020-03-11 16:52] LABS: PROTHROMBIN TIME 13.4 SEC (11.4-15.4)
[2020-03-11 16:53] LABS: PARTIAL THROMBOPLASTIN TIME 31.5 SEC (23.5-35.8)
[2020-03-11] MEDS ORDERED: AZITHROMYCIN INJ 500 MG VIAL IV ONE (16:53)
[2020-03-11] MEDS ORDERED: DEXAMETHASONE SOD PHOS INJ 10 MG/1 ML VIAL IV ONE (16:53)
[2020-03-11 16:57] LABS: ABSOLUTE BASOPHILS # (AUTO) 0.1 10^3/uL (0.0-0.2); ABSOLUTE EOSINOPHILS # (AUTO) 0.1 10^3/uL (0.0-0.6); ABSOLUTE MONOCYTES (AUTO) 0.9 10^3/uL (0.1-1.4); ABSOLUTE NEUT (AUTO) 6.7 10^3/uL (1.7-8.2); BASOPHILS % (AUTO) 0.8 % (0-2); EOSINOPHILS % (AUTO) 0.8 % (0-6); HEMATOCRIT 39.7 % (37.9-51.0); HEMOGLOBIN 13.5 g/dL (13.5-17.0); LYMPHOCYTES % (AUTO) 20.5 % (13-45); MEAN CORPUSCULAR HEMOGLOBIN 29.7 pg (27.0-33.4); MEAN CORPUSCULAR HGB CONC 34.1 g/dL (32.0-36.0); MEAN CORPUSCULAR VOLUME 87 fl (80-97); MONOCYTES % (AUTO) 9.5 % (3-13); PLATELET COUNT 583 10^3/uL (150-450); RED BLOOD COUNT 4.55 10^6/uL (4.35-5.55); SEGMENTED NEUTROPHILS % (AUTO) 68.4 % (42-78); TOTAL CELLS COUNTED % (AUTO) 100 %; WHITE BLOOD COUNT 9.8 10^3/uL (4.0-10.5)
[2020-03-11 17:08] LABS: ALBUMIN 3.4 g/dL (3.5-5.0); ALKALINE PHOSPHATASE 144 U/L (38-126); ANION GAP 8 (5-19); ASPARTATE AMINO TRANSFERASE 61 U/L (17-59); BILIRUBIN,DIRECT 0.3 mg/dL (0.0-0.4); BILIRUBIN,TOTAL 1.2 mg/dL (0.2-1.3); BLOOD UREA NITROGEN 11 mg/dL (7-20); CARBON DIOXIDE 26 mmol/L (22-30); CHLORIDE 101 mmol/L (98-107); GLUCOSE 123 mg/dL (75-110); POTASSIUM 4.4 mmol/L (3.6-5.0); TOTAL PROTEIN 6.2 g/dL (6.3-8.2)
--- NOTE | 2020-03-11 17:08 | RADIOLOGY REPORT (SQ) ---
EXAM DESCRIPTION: CHEST SINGLE VIEW IMAGES COMPLETED DATE/TIME: 03/11/2020 4:46 pm REASON FOR STUDY: plascencia pos CP COMPARISON: 03/01/2010 EXAM PARAMETERS: NUMBER OF VIEWS: One view. TECHNIQUE: Single frontal radiographic view of the chest acquired. RADIATION DOSE: NA LIMITATIONS: None. FINDINGS: LUNGS AND PLEURA: There is patchy opacification in the lower lung jackson compared to the e arlier study. MEDIASTINUM AND HILAR STRUCTURES: No masses. Contour normal. HEART AND VASCULAR STRUCTURES: Heart normal in size. Normal vasculature. BONES: No acute findings. HARDWARE: Sternotomy wires. OTHER: No other significant finding. IMPRESSION: There is patchy opacification in the lower lung jackson bilaterally, consistent with the history of COVID-19. TECHNICAL DOCUMENTATION: JOB ID: [id number] 2010 [employer]- All Rights Reserved Reading location - IP/workstation name: [email or web address]
[2020-03-11] MEDS ORDERED: IPRATROPIUM/ALBUTEROL 0.5-2.5 MG/3 ML AMPUL NEB PRN (18:59)
[2020-03-11] MEDS ORDERED: ATORVASTATIN CALCIUM 40 MG TABLET PO ONE (19:07)
[2020-03-11] MEDS ORDERED: ONDANSETRON 4 MG TAB.RAPDIS PO PRN (19:07)
[2020-03-11] MEDS ORDERED: DEXTROSE 40% GEL 15 GM TUBE PO PRN ×2 (19:17)
[2020-03-11] MEDS ORDERED: GLUCAGON,HUMAN RECOMB 1 MG INJ IM PRN (19:17)
[2020-03-11] MEDS ORDERED: NITROGLYCERIN 0.4 MG/TAB 25 TAB/BOTTLE SL PRN (19:17)
[2020-03-11] MEDS ORDERED: DEXTROSE 50%-WATER 25 GM/50 ML DISP.SYRIN IV PRN ×2 (19:17)
[2020-03-11 19:46] LABS: C-REACTIVE PROTEIN 25.1 mg/L (<10.0)
--- NOTE | 2020-03-11 20:16 | PDOC H&P ---
History of Present Illness Admission Date/PCP: 03/11/20 18:09 LETICIA RANKIN MD Patient complains of: chest pain History of Present Illness: DINORA SALDANA is a 80 year old male, past medical history of coronary artery disease, status post CABG triple-vessel in 1989, stent placement, hypertension, diabetes, hyperlipidemia, obesity who came in today due to chest pain. He was diagnosed with COVID 3 weeks ago with very minimal symptoms he never received treatment and he never needed hospitalization. This morning he woke up with a headache and also experienced chest pain and left arm pain. Chest pain was tingling nonradiating would last 15 to 20 seconds and would spontaneously resolved. He denies any shortness of breath or palpitations no orthopnea, no leg edema, no fever. His chest pain continued to recur throughout the day hence he came to the ED for evaluation. He also mentioned that his girlfriend is currently admitted here at [facility] for COVID pneumonia and is likely not going to make it. In the ED, VS BP 168/79, HR 75, 96% 2L, RR 22. EKG showed NSR no acute ST elevation. Troponin . He was given aspirin and nitroglycerin by EMS. CXR showed patchy opacification in the lower lung jackson bilaterally consistent with the history of COVID. He was given dexa 10 mg IV and azithro in the ED. I spoke to him about his code status and he wants to be full code. Past Medical History Cardiac Medical History: Reports: Congestive Heart Failure, Coronary Artery Disease, Myocardial Infarction, Hyperlipidema, Hypertension EENT Medical History: Reports: None Neurological Medical History: Reports: None Endocrine Medical History: Reports: None, Diabetes Mellitus Type 2 Renal/ Medical History: Reports: None GI Medical History: Reports: Gastroesophageal Reflux Disease Musculoskeltal Medical History: Reports: None Skin Medical History: Reports: None Past Surgical History Past Surgical History: Reports: Cardiac Catheterization - with stents, Cholecystectomy, Coronary Artery Bypass Graft, Coronary Stent Social History Lives with: Family Smoking Status: Former Smoker Electronic Cigarette use?: No Drugs: None Family History Family History: CAD, Hyperlipidemia Parental Family History Reviewed: Yes Children Family History Reviewed: Yes Sibling(s) Family History Reviewed.: Yes Medication/Allergy Home Medications: Amlodipine Besylate [Norvasc 5 mg Tablet] 5 mg PO DAILY 08/30/17 Aspirin [Aspirin 81 mg Chewable Tablet] 81 mg PO DAILY 08/30/17 Lisinopril [Prinivil 10 mg Tablet] 10 mg PO QHS 08/30/17 Loratadine [Claritin 10 mg Tablet] 10 mg PO DAILYP PRN 08/30/17 Metoprolol Tartrate [Lopressor 100 mg Tablet] 100 mg PO DAILY 08/30/17 Multivit with Iron,Minerals [Spectravite Senior] 1 each PO DAILY 08/30/17 Nitroglycerin [Nitrostat 0.4 mg (1/150 Gr) Tabs 25/Bottle] 1 tab SL Q5MP PRN 08/30/17 [place]-3 Acid Ethyl Esters [Lovaza 1 gm Capsule] 1 gm PO DAILY 08/30/17 Omeprazole 20 mg PO Q6AM 08/30/17 Pioglitazone HCl [Actos] 30 mg PO QAM 08/30/17 Vit C/E/Zn/Coppr/Lutein/Zeaxan [Preservision Areds 2 Softgel] 1 each PO DAILY 08/30/17 Atorvastatin Calcium [Lipitor 80 mg Tablet] 80 mg PO QHS #30 tablet 08/31/17 Lisinopril [Prinivil 10 mg Tablet] 10 mg PO QHS tablet 08/31/17 Tramadol HCl 50 mg PO Q12H #10 tablet 04/13/18 Allergies/Adverse Reactions: acetaminophen [From Excedrin P.M.] Allergy (Severe, Verified 08/30/17 05:17) TONGUE SWELLING diphenhydramine HCl [From Excedrin P.M.] Allergy (Severe, Verified 08/30/17 05:16) TONGUE SWELLING diphenhydramine citrate [From Excedrin P.M.] Allergy (Verified 08/30/17 05:17) TONGUE SWELLING Review of Systems Constitutional: PRESENT: headache(s). ABSENT: fatigue Eyes: ABSENT: visual disturbances Ears: ABSENT: hearing changes Cardiovascular: PRESENT: chest pain. ABSENT: dyspnea on exertion, edema, orthropnea, palpitations Gastrointestinal: ABSENT: abdominal pain, dysphagia Genitourinary: ABSENT: difficulty urinating, dysuria Integumentary: ABSENT: erythema Neurological: ABSENT: abnormal gait, abnormal movements, numbness, paresthesias Physical Exam Vital Signs: Temp Pulse Resp BP Pulse Ox 20 155/83 H 97 03/11/20 19:00 03/11/20 18:01 03/11/20 19:00 General appearance: PRESENT: no acute distress, cooperative Head exam: PRESENT: normocephalic Eye exam: PRESENT: EOMI, PERRLA Mouth exam: PRESENT: moist Neck exam: PRESENT: full ROM. ABSENT: JVD Respiratory exam: PRESENT: clear to auscultation randy, symmetrical, unlabored. ABSENT: rales, wheezes Cardiovascular exam: PRESENT: RRR, +S1, +S2 Pulses: PRESENT: +2 pedal pulses bilateral GI/Abdominal exam: PRESENT: normal bowel sounds, soft. ABSENT: rebound, tenderness Extremities exam: PRESENT: full ROM Musculoskeletal exam: PRESENT: full ROM Neurological exam: PRESENT: alert, awake, oriented to person, oriented to place, oriented to time, oriented to situation Psychiatric exam: PRESENT: normal mood Skin exam: PRESENT: normal color Results Laboratory Results: 03/11/20 16:16 03/11/20 16:16 03/11/20 03/11/20 16:16 16:16 WBC 9.8 RBC 4.55 Hgb 13.5 Hct 39.7 MCV 87 MCH 29.7 MCHC 34.1 RDW 14.0 Plt Count 583 H Seg Neutrophils % 68.4 Sodium 135.0 L Potassium 4.4 Chloride 101 Carbon Dioxide 26 Anion Gap 8 BUN 11 Creatinine 0.54 Est GFR ( Amer) > 60 Glucose 123 H Calcium 9.0 Total Bilirubin 1.2 AST 61 H Alkaline Phosphatase 144 H Total Protein 6.2 L Albumin 3.4 L 03/11/20 03/11/20 16:16 16:16 CK-MB (CK-2) 2.32 NT-Pro-B Natriuret Pep 702 H Impressions: Chest X-Ray 03/11/20 16:30 IMPRESSION: There is patchy opacification in the lower lung jackson bilaterally, consistent with the history of COVID-19. Assessment and Plan - Diagnosis (1) Chest pain Qualifiers: Chest pain type: precordial pain Qualified Code(s): R07.2 - Precordial pain Is this a current diagnosis for this admission?: Yes Plan: - Came in due to atypical chest pain with associated left arm pain, on and off, lasts 15-20 s, not effort related, spontaneously resolved - hx of CAD with stent placement and triple vessel bypass - given aspirin and nitro by EMS - EKG NSR no acute ST elevation - Troponin <0.012 x 1 - D dimer 0.64 - ddx: NSTEMI or PE, MSK - CT Angio chest - therapeutic lovenox - continue aspirin and nitro - repeat troponin (2) COVID-19 Is this a current diagnosis for this admission?: Yes Plan: - tested +ve 3 weeks ago with minimal symptoms - CXR showing patchy opacification LLF consistent with history of COVID 19 - CRP 25.1 - D dimer 0.64 - Ferritin pending - given dexamethasone will continue - zinc and vitamin C (3) Coronary artery disease Qualifiers: Coronary Disease-Associated Artery/Lesion type: unspecified vessel or lesion type [place] vs. transplanted heart: [place] heart Associated angina: angina presence unspecified Qualified Code(s): I25.10 - Atherosclerotic heart disease of [place] coronary artery without angina pectoris Is this a current diagnosis for this admission?: Yes Plan: - came in due to chest pain - Hx of 3 vessel CABG 30 years ago and stents few years ago - on aspirin, lipitor, metoprolol - EKG NSR, no ST elevation - troponin negative x 1 will repeat troponin - therapeutic lovenox for now - continue aspirin (4) HTN (hypertension) Qualifiers: Hypertension type: essential hypertension Qualified Code(s): I10 - Essential (primary) hypertension Is this a current diagnosis for this admission?: Yes Plan: - continue Lisinopril, metoprolol, amlodipine (5) Hyperlipemia Qualifiers: Hyperlipidemia type: unspecified Qualified Code(s): E78.5 - Hyperlipidemia, unspecified Is this a current diagnosis for this admission?: Yes Plan: - continue lipitor (6) Obesity (BMI 30-39.9) Is this a current diagnosis for this admission?: Yes Plan: - encouraged lifestyle modification - Time Time Spent with patient: 35 or more minutes Anticipated Discharge Disposition: Home, Self Care Anticipated Discharge Timeframe: to be determined
--- NOTE | 2020-03-11 21:02 | EKG REPORT ---
SEVERITY:- ABNORMAL ECG - SINUS RHYTHM CONSIDER ANTEROSEPTAL INFARCT NONSPECIFIC T ABNORMALITIES, ANT-LAT LEADS : Confirmed by: Stan Lozano 11-Mar-2020 21:02:09
[2020-03-11] MEDS: INSULIN LISPRO 100 UNIT/ML 3 ML VIAL SUBCUT SCH (21:46)
[2020-03-11] MEDS ORDERED: METOPROLOL SUCCINATE 25 MG TAB.SR.24H PO SCH (22:00)
[2020-03-11] MEDS ORDERED: HEPARIN SOD (PORCINE) 5,000 UNIT/ML 1 ML VIAL SUBCUT SCH (22:00)
--- NOTE | 2020-03-11 23:41 | RADIOLOGY REPORT (SQ) ---
EXAM DESCRIPTION: CT CHEST ANGIOGRAPHY WITHOUT THEN WITH IV CONTRAST COMPLETED DATE/TME: 03/11/2020 00:00 CLINICAL HISTORY: 80 years, Male, elevated D dimer COMPARISON: None. TECHNIQUE: 767 Images stored on PACS. All CT scanners at this facility use dose modulation, iterative reconstruction, and/or weight based dosing when appropriate to reduce radiation dose to as low as reasonably achievable (ALARA). Axial CTA images of the chest with coronal and sagittal MIPS [facility]: Dose Right [facility]: CareDose [facility]: Dose Right [facility]: Teradose 4D [facility]: [employer] Technologies LIMITATIONS: None. FINDINGS: Post surgical change of the mediastinum. There is no filling defect to suggest pulmonary embolus. Evaluation of the distal arterial branches is nearly nondiagnostic. Negative for thoracic aortic aneurysm or dissection. Cardiomegaly. Limited evaluation of upper abdomen grossly unremarkable. Osseous structures are grossly intact. There is no pneumothorax. The visualized airways are patent. Groundglass opacities bilaterally consistent with multifocal pneumonitis. IMPRESSION: Negative for pulmonary embolus. Multifocal pneumonitis. Cardiomegaly. Imaging features can be seen with viral pneumonia, though are nonspecific and can occur with a variety of infectious and noninfectious processes. [PneInd] TECHNICAL DOCUMENTATION: Quality ID # [id number]: Final reports with documentation of one or more dose reduction techniques (e.g., Automated exposure control, adjustment of the mA and/or kV according to patient size, use of iterative reconstruction technique) copyright 2011 [employer]- All Rights Reserved
[2020-03-11 23:51] LABS: APPEARANCE,URINE CLEAR; BILIRUBIN,URINE NEGATIVE (NEGATIVE); COLOR,URINE YELLOW; GLUCOSE, URINE NEGATIVE (NEGATIVE); KETONES,URINE TRACE mg/dL (NEGATIVE); LEUKOCYTE ESTERASE,URINE NEGATIVE (NEGATIVE); NITRITE,URINE NEGATIVE (NEGATIVE); PROTEIN,URINE NEGATIVE (NEGATIVE); URINE SPECIFIC GRAVITY 1.008; UROBILINOGEN,URINE NEGATIVE mg/dL (<2.0)
[2020-03-12] MEDS ORDERED: IBUPROFEN 800 MG TABLET ONE (02:24)
[2020-03-12] MEDS: IBUPROFEN 800 MG TABLET PO PRN (02:30)
[2020-03-12 07:23] LABS: ABSOLUTE LYMPHOCYTES (AUTO) 1.5 10^3/uL (0.5-4.7); ABSOLUTE MONOCYTES (AUTO) 0.4 10^3/uL (0.1-1.4); ABSOLUTE NEUT (AUTO) 7.7 10^3/uL (1.7-8.2); BASOPHILS % (AUTO) 0.3 % (0-2); HEMATOCRIT 38.6 % (37.9-51.0); HEMOGLOBIN 13.3 g/dL (13.5-17.0); LYMPHOCYTES % (AUTO) 15.3 % (13-45); MEAN CORPUSCULAR HEMOGLOBIN 30.1 pg (27.0-33.4); MEAN CORPUSCULAR HGB CONC 34.4 g/dL (32.0-36.0); MEAN CORPUSCULAR VOLUME 87 fl (80-97); MONOCYTES % (AUTO) 3.7 % (3-13); PLATELET COUNT 564 10^3/uL (150-450); RED BLOOD COUNT 4.41 10^6/uL (4.35-5.55); RED CELL DISTRIBUTION WIDTH 14.5 % (11.5-14.0); SEGMENTED NEUTROPHILS % (AUTO) 80.7 % (42-78); TOTAL CELLS COUNTED % (AUTO) 100 %; WHITE BLOOD COUNT 9.5 10^3/uL (4.0-10.5)
[2020-03-12 07:41] LABS: ALBUMIN 3.4 g/dL (3.5-5.0); ALKALINE PHOSPHATASE 143 U/L (38-126); ANION GAP 9 (5-19); ASPARTATE AMINO TRANSFERASE 54 U/L (17-59); BILIRUBIN,DIRECT 0.3 mg/dL (0.0-0.4); BLOOD UREA NITROGEN 13 mg/dL (7-20); CARBON DIOXIDE 25 mmol/L (22-30); CHLORIDE 101 mmol/L (98-107); GLUCOSE 146 mg/dL (75-110); TOTAL PROTEIN 6.4 g/dL (6.3-8.2)
[2020-03-12] MEDS: INSULIN LISPRO 100 UNIT/ML 3 ML VIAL SUBCUT SCH ×4 (08:41→22:15)
[2020-03-12] MEDS: LISINOPRIL 10 MG TABLET PO SCH (09:40)
[2020-03-12] MEDS: METOPROLOL SUCCINATE 50 MG TAB.SR.24H PO SCH (09:40)
[2020-03-12] MEDS: AMLODIPINE BESYLATE 5 MG TABLET PO SCH (09:40)
[2020-03-12] MEDS: ZINC SULFATE 220 MG CAPSULE PO SCH (09:40)
[2020-03-12] MEDS: DEXAMETHASONE SOD PHOS INJ 10 MG/1 ML VIAL IV SCH (09:40)
[2020-03-12] MEDS: ASCORBIC ACID 500 MG TABLET PO SCH (09:40)
[2020-03-12] MEDS: ASPIRIN 81 MG TABLET, CHEWABLE PO SCH (09:41)
[2020-03-12] MEDS ORDERED: ENOXAPARIN SODIUM INJ 80 MG/0.8 ML DISP.SYRIN SUBCUT SCH (10:00)
[2020-03-12] MEDS ORDERED: METOPROLOL SUCCINATE 25 MG TAB.SR.24H PO SCH (10:00)
[2020-03-12] MEDS ORDERED: LISINOPRIL 10 MG TABLET PO SCH (10:00)
[2020-03-12] MEDS ORDERED: METOPROLOL SUCCINATE 50 MG TAB.SR.24H PO SCH (10:00)
[2020-03-12] MEDS: CEFTRIAXONE 2 GM/D5W RTU 2 GM/50 ML RTUPB IV SCH (12:09)
[2020-03-12] MEDS: LORAZEPAM 1 MG TABLET PO ONE ×2 (12:10→12:48)
[2020-03-12] MEDS ORDERED: LORAZEPAM 1 MG TABLET ONE (12:48)
[2020-03-12] MEDS: HEPARIN SOD (PORCINE) 5,000 UNIT/ML 1 ML VIAL SUBCUT SCH ×2 (13:23→22:14)
--- NOTE | 2020-03-12 13:56 | PDOC PROGRESS REPORT ---
Subjective Progress Note for:: 03/12/20 Subjective:: DINORA SALDANA is a 80 year old male, past medical history of coronary artery disease, status post CABG triple-vessel in 1989, stent placement, hypertension, diabetes, hyperlipidemia, obesity who came in today due to chest pain. He was diagnosed with COVID 3 weeks ago with very minimal symptoms he never received treatment and he never needed hospitalization. This morning he woke up with a headache and also experienced chest pain and left arm pain. Chest pain was tingling nonradiating would last 15 to 20 seconds and would spontaneously resolved. He denies any shortness of breath or palpitations no orthopnea, no leg edema, no fever. His chest pain continued to recur throughout the day hence he came to the ED for evaluation. He also mentioned that his girlfriend is currently admitted here at [facility] for COVID pneumonia and is likely not going to make it. In the ED, VS BP 168/79, HR 75, 96% 2L, RR 22. EKG showed NSR no acute ST elevation. Troponin . He was given aspirin and nitroglycerin by EMS. CXR showed patchy opacification in the lower lung jackson bilaterally consistent with the history of COVID. He was given dexa 10 mg IV and azithro in the ED. I spoke to him about his code status and he wants to be full code. D2 hospital stay 03/12/20. He was seen and examined at bedside. Labs reviewed. CT angio negative for PE. Troponin negative x 3. He reports he still has on and off chest pain. He is afebrile, not coughing. He also found out that his girlfriend recently from COVID and he is visibly upset about this. I speculate that his chest pain may be a result of stress and anxiety from his partner's recent passing. He is also reluctant to go home because he will be alone. Reason For Visit: CHEST PAIN, COVID INFECTION Physical Exam Vital Signs: Temp Pulse Resp BP Pulse Ox 97.5 F 84 18 139/76 H 97 03/12/20 11:03 03/12/20 11:03 03/12/20 11:03 03/12/20 11:03 03/12/20 11:03 Intake & Output 03/11/20 03/12/20 03/13/20 06:59 06:59 06:59 Intake Total 530 Output Total 570 200 Balance -570 330 Weight 122 kg General appearance: PRESENT: no acute distress, cooperative, hard of hearing Head exam: PRESENT: atraumatic, normocephalic Eye exam: PRESENT: EOMI, PERRLA Mouth exam: PRESENT: moist Neck exam: PRESENT: full ROM Respiratory exam: PRESENT: clear to auscultation randy, symmetrical, unlabored Cardiovascular exam: PRESENT: RRR, +S1, +S2 Pulses: PRESENT: +2 pedal pulses bilateral GI/Abdominal exam: PRESENT: normal bowel sounds, soft. ABSENT: rebound, tenderness Extremities exam: PRESENT: full ROM Musculoskeletal exam: PRESENT: full ROM Neurological exam: PRESENT: alert, awake, oriented to person, oriented to place, oriented to time, oriented to situation Psychiatric exam: PRESENT: anxious Skin exam: PRESENT: normal color Results Laboratory Results: 03/12/20 06:30 03/12/20 06:30 03/11/20 03/11/20 03/11/20 16:15 16:16 16:16 WBC 9.8 RBC 4.55 Hgb 13.5 Hct 39.7 MCV 87 MCH 29.7 MCHC 34.1 RDW 14.0 Plt Count 583 H Seg Neutrophils % 68.4 Sodium 135.0 L Potassium 4.4 Chloride 101 Carbon Dioxide 26 Anion Gap 8 BUN 11 Creatinine 0.54 Est GFR ( Amer) > 60 Glucose 123 H Calcium 9.0 Ferritin 421.00 Total Bilirubin 1.2 AST 61 H Alkaline Phosphatase 144 H C-Reactive Protein 25.1 H Total Protein 6.2 L Albumin 3.4 L Urine Color Urine Appearance Urine pH Ur Specific [place] Urine Protein Urine Glucose (UA) Urine Ketones Urine Blood Urine Nitrite Ur Leukocyte Esterase Urine WBC (Auto) Urine RBC (Auto) 03/11/20 03/12/20 03/12/20 22:30 06:30 06:30 WBC 9.5 RBC 4.41 Hgb 13.3 L Hct 38.6 MCV 87 MCH 30.1 MCHC 34.4 RDW 14.5 H Plt Count 564 H Seg Neutrophils % 80.7 H Sodium 134.6 L Potassium 5.0 Chloride 101 Carbon Dioxide 25 Anion Gap 9 BUN 13 Creatinine 0.55 Est GFR ( Amer) > 60 Glucose 146 H Calcium 9.0 Ferritin Total Bilirubin 1.0 AST 54 Alkaline Phosphatase 143 H C-Reactive Protein Total Protein 6.4 Albumin 3.4 L Urine Color YELLOW Urine Appearance CLEAR Urine pH 7.0 Ur Specific [place] 1.008 Urine Protein NEGATIVE Urine Glucose (UA) NEGATIVE Urine Ketones TRACE H Urine Blood NEGATIVE Urine Nitrite NEGATIVE Ur Leukocyte Esterase NEGATIVE Urine WBC (Auto) 1 Urine RBC (Auto) 0 03/11/20 03/11/20 03/11/20 16:16 16:16 18:48 CK-MB (CK-2) 2.32 Troponin I < 0.012 NT-Pro-B Natriuret Pep 702 H 03/11/20 03/12/20 03/12/20 22:12 02:45 06:30 CK-MB (CK-2) Troponin I < 0.012 < 0.012 < 0.012 NT-Pro-B Natriuret Pep Impressions: Chest/Abdomen CTA 03/11/20 00:00 IMPRESSION: Negative for pulmonary embolus. Multifocal pneumonitis. Cardiomegaly. Imaging features can be seen with viral pneumonia, though are nonspecific and can occur with a variety of infectious and noninfectious processes. [PneInd] TECHNICAL DOCUMENTATION: Quality ID # [id number]: Final reports with documentation of one or more dose reduction techniques (e.g., Automated exposure control, adjustment of the mA and/or kV according to patient size, use of iterative reconstruction technique) copyright 2011 [employer]- All Rights Reserved Chest X-Ray 03/11/20 16:30 IMPRESSION: There is patchy opacification in the lower lung jackson bilaterally, consistent with the history of COVID-19. Assessment and Plan - Diagnosis (1) Chest pain Qualifiers: Chest pain type: precordial pain Qualified Code(s): R07.2 - Precordial pain Is this a current diagnosis for this admission?: Yes Plan: - Came in due to atypical chest pain with associated left arm pain, on and off, lasts 15-20 s, not effort related, spontaneously resolved - hx of CAD with stent placement and triple vessel bypass - given aspirin and nitro by EMS - EKG NSR no acute ST elevation - D dimer 0.64 - ddx: NSTEMI or PE, MSK - CT Angio chest negative for PE - continue aspirin and nitro - repeat troponin negative x 3 - chest pain may be related to recent stress and anxiety due to his partner's recent . he is also reluctant to go home alone. (2) COVID-19 Is this a current diagnosis for this admission?: Yes Plan: - tested +ve 3 weeks ago with minimal symptoms - CXR showing patchy opacification LLF consistent with history of COVID 19 - CRP 25.1 - D dimer 0.64 - Ferritin 421 - on dexamethasone. He does not qualify for remdesivir. - he is not on oxygen, minimally symptomatic besides the chest pain. - zinc and vitamin C (3) Coronary artery disease Qualifiers: Coronary Disease-Associated Artery/Lesion type: unspecified vessel or lesion type [place] vs. transplanted heart: [place] heart Associated angina: angina presence unspecified Qualified Code(s): I25.10 - Atherosclerotic heart disease of [place] coronary artery without angina pectoris Is this a current diagnosis for this admission?: Yes Plan: - came in due to chest pain - Hx of 3 vessel CABG 30 years ago and stents few years ago - on aspirin, lipitor, metoprolol - EKG NSR, no ST elevation - troponin negative x 3 - continue aspirin (4) HTN (hypertension) Qualifiers: Hypertension type: essential hypertension Qualified Code(s): I10 - Essential (primary) hypertension Is this a current diagnosis for this admission?: Yes Plan: - continue Lisinopril, metoprolol, amlodipine (5) Hyperlipemia Qualifiers: Hyperlipidemia type: unspecified Qualified Code(s): E78.5 - Hyperlipidemia, unspecified Is this a current diagnosis for this admission?: Yes Plan: - continue lipitor (6) Obesity (BMI 30-39.9) Is this a current diagnosis for this admission?: Yes - Plan Summary Summary: Patient was diagnosed with COVID 3 weeks ago but did not develop any significant symptom who was admitted due to chest pain. Mi and PE have been ruled out. He is receiving abx and steroids in patient. - Time Time Spent with patient: 25-34 minutes Anticipated Discharge Disposition: Home, Self Care Anticipated Discharge Timeframe: to be determined
[2020-03-13] MEDS: IBUPROFEN 800 MG TABLET PO PRN (03:00)
[2020-03-13] MEDS ORDERED: MORPHINE SULFATE 10 MG/ML INJ ONE (04:52)
[2020-03-13] MEDS ORDERED: MORPHINE SULFATE 10 MG/ML INJ IV PRN (04:57)
[2020-03-13] MEDS: HEPARIN SOD (PORCINE) 5,000 UNIT/ML 1 ML VIAL SUBCUT SCH ×2 (05:38→13:49)
[2020-03-13 06:44] LABS: ABSOLUTE LYMPHOCYTES (AUTO) 2.1 10^3/uL (0.5-4.7); ABSOLUTE MONOCYTES (AUTO) 1.3 10^3/uL (0.1-1.4); BASOPHILS % (AUTO) 0.2 % (0-2); HEMATOCRIT 40.2 % (37.9-51.0); HEMOGLOBIN 13.6 g/dL (13.5-17.0); LYMPHOCYTES % (AUTO) 12.9 % (13-45); MEAN CORPUSCULAR HEMOGLOBIN 29.5 pg (27.0-33.4); MEAN CORPUSCULAR HGB CONC 33.9 g/dL (32.0-36.0); MEAN CORPUSCULAR VOLUME 87 fl (80-97); MONOCYTES % (AUTO) 7.7 % (3-13); PLATELET COUNT 669 10^3/uL (150-450); RED BLOOD COUNT 4.62 10^6/uL (4.35-5.55); RED CELL DISTRIBUTION WIDTH 14.6 % (11.5-14.0); SEGMENTED NEUTROPHILS % (AUTO) 79.2 % (42-78); TOTAL CELLS COUNTED % (AUTO) 100 %; WHITE BLOOD COUNT 16.4 10^3/uL (4.0-10.5)
[2020-03-13] MEDS: INSULIN LISPRO 100 UNIT/ML 3 ML VIAL SUBCUT SCH ×2 (08:12→12:29)
[2020-03-13] MEDS: ZINC SULFATE 220 MG CAPSULE PO SCH (09:33)
[2020-03-13] MEDS: ASCORBIC ACID 500 MG TABLET PO SCH (09:33)
[2020-03-13] MEDS: DEXAMETHASONE SOD PHOS INJ 10 MG/1 ML VIAL IV SCH (09:33)
[2020-03-13] MEDS: LISINOPRIL 10 MG TABLET PO SCH (09:33)
[2020-03-13] MEDS: METOPROLOL SUCCINATE 50 MG TAB.SR.24H PO SCH (09:33)
[2020-03-13] MEDS: ASPIRIN 81 MG TABLET, CHEWABLE PO SCH (09:33)
[2020-03-13] MEDS: AMLODIPINE BESYLATE 5 MG TABLET PO SCH (09:33)
[2020-03-13] MEDS: CEFTRIAXONE 2 GM/D5W RTU 2 GM/50 ML RTUPB IV SCH (12:29)
[2020-03-13 12:58] VITALS: BP 138/74
--- NOTE | 2020-03-13 14:08 | PDOC DISCHARGE SUMMARY ---
Impression - Admit/DC Date/PCP Admission Date/Primary Care Provider: 03/11/20 18:09 LETICIA RANKIN MD Discharge Date: 03/13/20 - Discharge Diagnosis (1) Chest pain Is this a current diagnosis for this admission?: Yes (2) COVID-19 Is this a current diagnosis for this admission?: Yes (3) Coronary artery disease Is this a current diagnosis for this admission?: Yes (4) HTN (hypertension) Is this a current diagnosis for this admission?: Yes (5) Hyperlipemia Is this a current diagnosis for this admission?: Yes (6) Obesity (BMI 30-39.9) Is this a current diagnosis for this admission?: Yes - Assessment Summary: Patient was diagnosed with COVID 3 weeks ago but did not develop any significant symptom who was admitted due to chest pain. Mi and PE have been ruled out. He is receiving abx and steroids in patient. - Additional Information Discharge Diet: As Tolerated Discharge Activity: Activity As Tolerated Referrals: LETICIA RANKIN MD [Primary Care Provider] - Follow up as needed Prescriptions: Levofloxacin [Levaquin 750 mg Tablet] 750 mg PO DAILY 5 Days #5 tablet Gabapentin [Neurontin 100 mg Capsule] 100 mg PO Q12 14 Days #60 capsule Home Medications: Lisinopril [Prinivil 10 mg Tablet] 20 mg PO QHS 08/30/17 Metoprolol Tartrate [Lopressor 100 mg Tablet] 100 mg PO BID 08/30/17 Omeprazole 20 mg PO Q6AM 08/30/17 Pioglitazone HCl [Actos] 30 mg PO QAM 08/30/17 Atorvastatin Calcium [Lipitor 80 mg Tablet] 80 mg PO QHS #30 tablet 08/31/17 Aspirin [Ecotrin 81 mg EC Tablet] 162 mg PO DAILY 03/12/20 Escitalopram Oxalate [Lexapro 10 mg Tablet] 10 mg PO DAILY 03/12/20 Ezetimibe [Zetia 10 mg Tablet] 10 mg PO DAILY 03/12/20 Fluticasone Propionate [Flonase Nasal [place] 50 Mcg/[place] 16 gm] 1 spray NASL DAILY 03/12/20 Gabapentin [Neurontin 100 mg Capsule] 100 mg PO Q12 14 Days #60 capsule 03/13/20 Levofloxacin [Levaquin 750 mg Tablet] 750 mg PO DAILY 5 Days #5 tablet 03/13/20 History of Present Illiness History of Present Illness: DINORA SALDANA is a 80 year old male, past medical history of coronary artery disease, status post CABG triple-vessel in 1989, stent placement, hypertension, diabetes, hyperlipidemia, obesity who came in today due to chest pain. He was diagnosed with COVID 3 weeks ago with very minimal symptoms he never received treatment and he never needed hospitalization. This morning he woke up with a headache and also experienced chest pain and left arm pain. Chest pain was tingling nonradiating would last 15 to 20 seconds and would spontaneously resolved. He denies any shortness of breath or palpitations no orthopnea, no leg edema, no fever. His chest pain continued to recur throughout the day hence he came to the ED for evaluation. He also mentioned that his girlfriend is currently admitted here at [facility] for COVID pneumonia and is likely not going to make it. In the ED, VS BP 168/79, HR 75, 96% 2L, RR 22. EKG showed NSR no acute ST elevation. Troponin . He was given aspirin and nitroglycerin by EMS. CXR showed patchy opacification in the lower lung jackson bilaterally consistent with the history of COVID. He was given dexa 10 mg IV and azithro in the ED. I spoke to him about his code status and he wants to be full code. Hospital Course Hospital Course: 2 hospital stay 03/12/20. He was seen and examined at bedside. Labs reviewed. CT angio negative for PE. Troponin negative x 3. He reports he still has on and off chest pain. He is afebrile, not coughing. He also found out that his girlfriend recently from COVID and he is visibly upset about this. I speculate that his chest pain may be a result of stress and anxiety from his partner's recent passing. He is also reluctant to go home because he will be alone. D3 hospital stay. Looks well, afebrile, not on oxygen. No chest pains, no SOB. Discharged with 5 days of levaquin. Physical Exam Vital Signs: Temp Pulse Resp BP Pulse Ox 98.0 F 69 18 138/74 H 92 03/13/20 12:58 03/13/20 12:58 03/13/20 12:58 03/13/20 11:37 03/13/20 12:58 Intake & Output 0903/13/20 03/14/20 06:59 06:59 06:59 Intake Total 1705 530 Output Total 570 1800 Balance -570 -95 530 Weight 122 kg 118.2 kg General appearance: PRESENT: no acute distress, cooperative Head exam: PRESENT: atraumatic, normocephalic Eye exam: PRESENT: EOMI, PERRLA Mouth exam: PRESENT: moist Neck exam: PRESENT: full ROM Respiratory exam: PRESENT: clear to auscultation randy, symmetrical, unlabored Cardiovascular exam: PRESENT: RRR, +S1, +S2, systolic murmur GI/Abdominal exam: PRESENT: normal bowel sounds, soft. ABSENT: rebound, tenderness Extremities exam: PRESENT: full ROM. ABSENT: joint swelling, +2 edema Musculoskeletal exam: PRESENT: full ROM Neurological exam: PRESENT: alert, awake, oriented to person, oriented to place, oriented to time, oriented to situation Skin exam: PRESENT: normal color Results Laboratory Results: WBC 16.4 10^3/uL (4.0-10.5) H 03/13/20 05:10 RBC 4.62 10^6/uL (4.35-5.55) 03/13/20 05:10 Hgb 13.6 g/dL (13.5-17.0) 03/13/20 05:10 Hct 40.2 % (37.9-51.0) 03/13/20 05:10 MCV 87 fl (80-97) 03/13/20 05:10 MCH 29.5 pg (27.0-33.4) 03/13/20 05:10 MCHC 33.9 g/dL (32.0-36.0) 03/13/20 05:10 RDW 14.6 % (11.5-14.0) H 03/13/20 05:10 Plt Count 669 10^3/uL (150-450) H 03/13/20 05:10 Lymph % (Auto) 12.9 % (13-45) L 03/13/20 05:10 [place] % (Auto) 7.7 % (3-13) 03/13/20 05:10 Eos % (Auto) 0.0 % (0-6) 03/13/20 05:10 Baso % (Auto) 0.2 % (0-2) 03/13/20 05:10 Absolute Neuts (auto) 13.0 10^3/uL (1.7-8.2) H 03/13/20 05:10 Absolute Lymphs (auto) 2.1 10^3/uL (0.5-4.7) 03/13/20 05:10 Absolute Monos (auto) 1.3 10^3/uL (0.1-1.4) 03/13/20 05:10 Absolute Eos (auto) 0.0 10^3/uL (0.0-0.6) 03/13/20 05:10 Absolute Basos (auto) 0.0 10^3/uL (0.0-0.2) 03/13/20 05:10 Seg Neutrophils % 79.2 % (42-78) H 03/13/20 05:10 ESR 78 mm/hr (0-20) H 03/11/20 16:16 PT 13.4 SEC (11.4-15.4) 03/11/20 16:16 INR 1.00 03/11/20 16:16 APTT 31.5 SEC (23.5-35.8) 03/11/20 16:16 D-Dimer 0.64 ug/mL (0.00-0.50) H 03/11/20 16:15 Sodium 134.6 mmol/L (137-145) L 03/12/20 06:30 Potassium 5.0 mmol/L (3.6-5.0) 03/12/20 06:30 Chloride 101 mmol/L (98-107) 03/12/20 06:30 Carbon Dioxide 25 mmol/L (22-30) 03/12/20 06:30 Anion Gap 9 (5-19) 03/12/20 06:30 BUN 13 mg/dL (7-20) 03/12/20 06:30 Creatinine 0.55 mg/dL (0.52-1.25) 03/12/20 06:30 Est GFR ( Amer) > 60 (>60) 03/12/20 06:30 Est GFR (MDRD) Non-Af > 60 (>60) 03/12/20 06:30 Glucose 146 mg/dL (75-110) H 03/12/20 06:30 POC Glucose 202 mg/dL (70-110) H 03/13/20 11:38 Calcium 9.0 mg/dL (8.4-10.2) 03/12/20 06:30 Ferritin 421.00 ng/mL (17.9-464.0) 03/11/20 16:15 Total Bilirubin 1.0 mg/dL (0.2-1.3) 03/12/20 06:30 Direct Bilirubin 0.3 mg/dL (0.0-0.4) 03/12/20 06:30 Neonat Total Bilirubin Not Reportable 03/12/20 06:30 Neonat Direct Bilirubin Not Reportable 03/12/20 06:30 Neonat Indirect Bili Not Reportable 03/12/20 06:30 AST 54 U/L (17-59) 03/12/20 06:30 ALT 81 U/L (<50) H 03/12/20 06:30 Alkaline Phosphatase 143 U/L (38-126) H 03/12/20 06:30 CK-MB (CK-2) 2.32 ng/mL (<4.55) 03/11/20 16:16 Troponin I < 0.012 ng/mL 03/12/20 06:30 C-Reactive Protein 25.1 mg/L (<10.0) H 03/11/20 16:15 NT-Pro-B Natriuret Pep 702 pg/mL (<450) H 03/11/20 16:16 Total Protein 6.4 g/dL (6.3-8.2) 03/12/20 06:30 Albumin 3.4 g/dL (3.5-5.0) L 03/12/20 06:30 Urine Color YELLOW 03/11/20 22:30 Urine Appearance CLEAR 03/11/20 22:30 Urine pH 7.0 (5.0-9.0) 03/11/20 22:30 Ur Specific [place] 1.008 03/11/20 22:30 Urine Protein NEGATIVE mg/dL (NEGATIVE) 03/11/20 22:30 Urine Glucose (UA) NEGATIVE mg/dL (NEGATIVE) 03/11/20 22:30 Urine Ketones TRACE mg/dL (NEGATIVE) H 03/11/20 22:30 Urine Blood NEGATIVE (NEGATIVE) 03/11/20 22:30 Urine Nitrite NEGATIVE (NEGATIVE) 03/11/20 22:30 Urine Bilirubin NEGATIVE (NEGATIVE) 03/11/20 22:30 Urine Urobilinogen NEGATIVE mg/dL (<2.0) 03/11/20 22:30 Ur Leukocyte Esterase NEGATIVE (NEGATIVE) 03/11/20 22:30 Urine WBC (Auto) 1 /HPF 03/11/20 22:30 Urine RBC (Auto) 0 /HPF 03/11/20 22:30 Urine Mucus (Auto) RARE /LPF 03/11/20 22:30 Urine Ascorbic Acid NEGATIVE (NEGATIVE) 03/11/20 22:30 03/11/20 03/11/20 03/11/20 16:16 16:16 18:48 CK-MB (CK-2) 2.32 Troponin I < 0.012 NT-Pro-B Natriuret Pep 702 H 03/11/20 03/12/20 03/12/20 22:12 02:45 06:30 CK-MB (CK-2) Troponin I < 0.012 < 0.012 < 0.012 NT-Pro-B Natriuret Pep Impressions: Chest/Abdomen CTA 03/11/20 00:00 IMPRESSION: Negative for pulmonary embolus. Multifocal pneumonitis. Cardiomegaly. Imaging features can be seen with viral pneumonia, though are nonspecific and can occur with a variety of infectious and noninfectious processes. [PneInd] TECHNICAL DOCUMENTATION: Quality ID # [id number]: Final reports with documentation of one or more dose reduction techniques (e.g., Automated exposure control, adjustment of the mA and/or kV according to patient size, use of iterative reconstruction technique) copyright 2011 [employer]- All Rights Reserved Chest X-Ray 03/11/20 16:30 IMPRESSION: There is patchy opacification in the lower lung jackson bilaterally, consistent with the history of COVID-19. Plan Plan of Treatment: - Continue antibiotics Levaquin for 5 days - follow up with PCP Stroke Is this a Stroke Patient?: No Acute Heart Failure Is this a Heart Failure Patient?: No
== END 2020-03-13 14:15 | disposition home or self-care (01) | DRG 179 ==
LOC: ER 16:05 → EH 18:09 → ICU 21:20 → 3N 03-12 01:50
PROVIDERS: ADMIT Internal Medicine; ATTEND Internal Medicine
DX: U07.1 COVID-19 (principal); I25.10 Atherosclerotic heart disease of native coronary artery without angina pectoris; I10 Essential (primary) hypertension; E78.5 Hyperlipidemia, unspecified; E66.9 Obesity, unspecified; K21.9 Gastro-esophageal reflux disease without esophagitis; E11.9 Type 2 diabetes mellitus without complications; Z79.899 Other long term (current) drug therapy; Z79.82 Long term (current) use of aspirin; Z95.1 Presence of aortocoronary bypass graft; Z95.5 Presence of coronary angioplasty implant and graft; Z87.891 Personal history of nicotine dependence; Z82.49 Family history of ischemic heart disease and other diseases of the circulatory system; Z88.6 Allergy status to analgesic agent; R07.2 Precordial pain
CPT/HCPCS: 36415; 71045; 71275; 80053; 81001; 82553; 82728; 82962; 83880; 84484; 85025; 85379; 85610; 85652; 85730; 86140; 87040; 93005; 93010; 96365; 96375; 99285; J0456; J0696; J1100; J1644; J1650; J1815; J2270; J3490; S0119

== ENCOUNTER 2020-07-15 22:06 | Emergency (ER) | payer MEDICARE, OTHER ==
[2020-07-15 22:46] LABS: ABSOLUTE BASOPHILS # (AUTO) 0.1 10^3/uL (0.0-0.2); ABSOLUTE LYMPHOCYTES (AUTO) 0.6 10^3/uL (0.5-4.7); ABSOLUTE MONOCYTES (AUTO) 0.9 10^3/uL (0.1-1.4); ABSOLUTE NEUT (AUTO) 8.4 10^3/uL (1.7-8.2); BASOPHILS % (AUTO) 0.6 % (0-2); EOSINOPHILS % (AUTO) 0.1 % (0-6); HEMATOCRIT 42.8 % (37.9-51.0); HEMOGLOBIN 14.9 g/dL (13.5-17.0); LYMPHOCYTES % (AUTO) 6.5 % (13-45); MEAN CORPUSCULAR HEMOGLOBIN 29.9 pg (27.0-33.4); MEAN CORPUSCULAR HGB CONC 34.7 g/dL (32.0-36.0); MEAN CORPUSCULAR VOLUME 86 fl (80-97); MONOCYTES % (AUTO) 8.7 % (3-13); PLATELET COUNT 240 10^3/uL (150-450); RED BLOOD COUNT 4.97 10^6/uL (4.35-5.55); RED CELL DISTRIBUTION WIDTH 14.5 % (11.5-14.0); SEGMENTED NEUTROPHILS % (AUTO) 84.1 % (42-78); TOTAL CELLS COUNTED % (AUTO) 100 %
[2020-07-15 22:50] LABS: INTERNATIONAL RATION (INR) 0.98; PROTHROMBIN TIME 13.2 SEC (11.4-15.4)
[2020-07-15 22:56] LABS: ALBUMIN 3.8 g/dL (3.5-5.0); ALKALINE PHOSPHATASE 86 U/L (38-126); ANION GAP 9 (5-19); ASPARTATE AMINO TRANSFERASE 37 U/L (17-59); BILIRUBIN,DIRECT 0.2 mg/dL (0.0-0.4); BILIRUBIN,TOTAL 2.3 mg/dL (0.2-1.3); BLOOD UREA NITROGEN 17 mg/dL (7-20); CALCIUM 9.2 mg/dL (8.4-10.2); CARBON DIOXIDE 25 mmol/L (22-30); CHLORIDE 97 mmol/L (98-107); GLUCOSE 141 mg/dL (75-110); POTASSIUM 4.2 mmol/L (3.6-5.0); TOTAL PROTEIN 6.4 g/dL (6.3-8.2)
[2020-07-15 23:08] LABS: VENOUS BLOOD BASE EXCESS 0.9 mmol/L; VENOUS BLOOD HCO3 24.4 mmol/L (20-32); VENOUS BLOOD PCO2 35.6 mmHg (35-63); VENOUS BLOOD PH 7.45 (7.30-7.42)
--- NOTE | 2020-07-15 23:21 | RADIOLOGY REPORT (SQ) ---
CLINICAL HISTORY: shortness of breath COMPARISON: 03/11/2020. TECHNIQUE: XR CHEST 1 VIEW 07/15/2020 12:00 AM [employer] FINDINGS: The heart is mildly enlarged. Sternotomy was performed. Lungs are clear without consolidation, atelectasis, mass or edema. There is no pleural effusion. There is no pneumothorax. There are no acute osseous findings. IMPRESSION: Clear lungs.
[2020-07-15] MEDS ORDERED: NORMAL SALINE 1000 ML 1,000 ML IV ONE (23:34)
[2020-07-15] MEDS ORDERED: LEVALBUTEROL HCL NEB 1.25 MG/3 ML AMPUL NEB ONE (23:34)
[2020-07-15] MEDS ORDERED: KETOROLAC TROMETHAMINE INJ/PF 30 MG/1 ML SDV IV ONE (23:35)
--- NOTE | 2020-07-16 01:15 | ER Document Report ---
Entered by NOEMI FERRERA SCRIBE 07/15/20 2248 Acting as scribe for:PJ MARTINEZ IV, MD ED Respiratory Problem - General Chief Complaint: Shortness Of Breath Stated Complaint: SHORTNESS OF BREATH Time Seen by Provider: 07/15/20 22:47 Primary Care Provider: LETICIA RANKIN MD [Primary Care Provider] - Follow up as needed Mode of Arrival: Medic Information source: Patient Notes: This 80-year-old male patient presents to the emergency department today with "not being able to breathe out of his nose". Patient reports that he got the first round of the COVID-19 vaccine yesterday and he thinks his symptoms today are related to that. Patient states he felt fine yesterday when he went in for the shot and felt fine yesterday after the shot. Patient reports he woke up this morning with nasal congestion, chills, and generalized body aches. Patient has tried Tylenol and Benadryl with no relief. He denies any fevers. He did get a flu shot this year. TRAVEL OUTSIDE OF THE [place] IN LAST 30 DAYS: No - Related Data Allergies/Adverse Reactions: acetaminophen [From Excedrin P.M.] Allergy (Severe, Verified 08/30/17 05:17) TONGUE SWELLING diphenhydramine HCl [From Excedrin P.M.] Allergy (Severe, Verified 08/30/17 05:16) TONGUE SWELLING diphenhydramine citrate [From Excedrin P.M.] Allergy (Verified 08/30/17 05:17) TONGUE SWELLING Past Medical History - General Information source: Patient - Social History Smoking Status: Former Smoker - quit in 1986 Cigarette use (# per day): No Frequency of alcohol use: None Drug Abuse: None Lives with: Family Family History: CAD, Hyperlipidemia - Past Medical History Cardiac Medical History: Reports: Hx Congestive Heart Failure, Hx Coronary Artery Disease, Hx Heart Attack, Hx Hypercholesterolemia, Hx Hypertension Endocrine Medical History: Reports: Hx Diabetes Mellitus Type 2 GI Medical History: Reports: Hx Gastroesophageal Reflux Disease Past Surgical History: Reports: Hx Cardiac Catheterization - with stents, Hx Cardiac Surgery - bypass 1989, Hx Cholecystectomy, Hx Coronary Artery Bypass Graft, Hx Coronary Stent - Immunizations Hx Pneumococcal Vaccination: 06/24/09 Review of Systems - Review of Systems Constitutional: See HPI, Chills. denies: Weakness EENT: See HPI, Nose congestion Cardiovascular: No symptoms reported Respiratory: No symptoms reported Gastrointestinal: No symptoms reported Genitourinary: No symptoms reported Male Genitourinary: No symptoms reported Musculoskeletal: See HPI, Muscle pain Skin: No symptoms reported Hematologic/Lymphatic: No symptoms reported Neurological/Psychological: No symptoms reported -: Yes All other systems reviewed and negative Physical Exam - Vital signs Vitals: Temp 100.0 F 07/15/20 22:07 - Notes Notes: Physical Exam: General: Alert, appears well. HEENT: Normocephalic. Atraumatic. PERRL. Extraocular movements intact. Oropharynx clear. Nasal sinus congestion. Neck: Supple. Non-tender. Respiratory: No respiratory distress. Clear and equal breath sounds bilaterally. Cardiovascular: Tachycardic, regular rhythm. Abdominal: Normal Inspection. Non-tender. No distension. Normal Bowel Sounds. Back: No gross abnormalities. Extremities: Moves all four extremities. Upper extremities: Normal inspection. Normal ROM. Lower extremities: Normal inspection. No edema. Normal ROM. Neurological: Normal cognition. AAOx4. Normal speech. Psychological: Normal affect. Normal Mood. Skin: Warm. Dry. Normal color. Course - Re-evaluation Re-evalutation: 07/15/20 23:37 Differential diagnosis: Adverse reaction to COVID-19 vaccine, viral syndrome, sinusitis, pneumonia, nasal congestion, myalgias 07/16/20 01:39 Medical decision making: Patient's work-up in the emergency department was unremarkable. There is no evidence of a pneumonia on the patient's x-ray and patient states that the trouble breathing he is referring to mainly involves the fact that his nose is congested and he is not able to breathe through it. I have ordered some Afrin for the patient to use and have counseled him extensively about not using the Afrin more than 48 hours because it causes rebound. Patient states he does have Flonase at home and I recommended that he start using the Flonase on a daily basis and stop using the Afrin as soon as possible, preferably before 48 hours. I think the patient may be having some malaise and myalgias as a adverse reaction to the COVID-19 vaccine and I do not see any evidence of anything else emergent going on. I think the patient should use supportive measures as were discussed with him. Results of ED MSE discussed with patient. All questions were answered prior to discharge. Emergency signs and symptoms, reasons to return to the emergency department discussed with patient. - Vital Signs Vital signs: Temp Pulse Resp BP Pulse Ox 97.9 F 25 H 128/73 H 95 07/16/20 01:09 07/16/20 01:09 07/16/20 01:09 07/16/20 01:09 - Laboratory Results Result Diagrams: 07/15/20 22:15 07/15/20 22:15 Laboratory Results Interpreted: 07/15/20 07/15/20 07/15/20 22:15 22:15 22:42 RDW 14.5 H Lymph % (Auto) 6.5 L Absolute Neuts (auto) 8.4 H Seg Neutrophils % 84.1 H VBG pH 7.45 H Sodium 130.7 L Chloride 97 L Glucose 141 H Total Bilirubin 2.3 H Critical Laboratory Results Reviewed: No Critical Results - Bilirubin is elevated but the patient is not complaining of any abdominal pain, nausea or vo miting. - Radiology Results Critical Radiology Results Reviewed: No Critical Results Attending or Supervising Physician who Reviewed Radiology: PJ MARTINEZ IV - EKG Interpretation by Me Additional EKG results interpreted by me: 07/15/20 23:36 EKG obtained on 07/15/2020 at 2227 hrs. was interpreted by this MD. Findings: Sinus tachycardia, rate 103, normal axis, AK interval appears to be within normal limits, P waves preceding QRS complexes, QRS complexes appear narrow, there are no obvious patterns of ST segment elevation, depression or reciprocal changes seen to suggest acute myocardial ischemia or infarction. When compared with prior EKG dated 03/11/2020 the gross morphology of the 2 EKGs appears to be the same. Impression: Sinus tachycardia with nonspecific ST segments. Discharge - Discharge Clinical Impression: Nasal congestion Adverse reaction to vaccine Qualifiers: Encounter type: initial encounter Qualified Code(s): T50.Z95A - Adverse effect of other vaccines and biological substances, initial encounter Condition: Stable Disposition: HOME, SELF-CARE Additional Instructions: Return to the Emergency Department without delay if any worse. Be certain to not use Afrin nasal spray more than 48 hours because it can cause rebound worsening of your nasal congestion. Start using your Flonase again as discussed. HOME CARE INSTRUCTIONS & INFORMATION: Thank you for choosing us for your medical needs. We hope you're satisfied with the care you received. After you leave, you must properly care for your problem and, at the same time, observe its progress. Any condition can change. Some illnesses can change rapidly over hours or days. If your condition worsens, return to the Emergency Department or see your physician promptly. ABOUT YOUR X-RAYS AND EKG'S: If you had an EKG or X-rays taken, they have been read by the Emergency Physician. The X-rays and EKG's will also be read by a Radiologist or [employer] Maker within 24 hours. If discrepancies are noted, you will be notified by telephone. Please be certain the ED has a correct telephone number & address where you can be reached. Also, realize that some fractures or abnormalities do not show up on initial X-rays. If your symptoms continue, see your physician. ABOUT YOUR LABORATORY TEST: If you had laboratory tests, the results have been reviewed by the Emergency Physician. Some test results (for example cultures) may not be available for several days. You will be contacted if any test result shows you need additional treatment. Please be certain the ED has a correct telephone number and address where you can be reached. ABOUT YOUR MEDICATIONS: You will receive instructions on how to take your medicine on the prescription label you receive. Additional information may be provided by the Pharmacy. If you have questions afterwards, call the ED for clarification or further instructions. Some prescribed medications may cause drowsiness. Do not perform tasks such as driving a car or operating machinery without consulting your Pharmacist. If you feel you need a refill of pain medication, your condition will need re-evaluation. Please do not call for a refill of any medication. ABOUT YOUR SIGNATURE: Signature of this document acknowledges to followin. Understanding that you received emergency treatment and that you may be released before al medical problems are known or treated. Please be certain the ED has a correct phone number & address where you can be reached. 2. Acknowledgement that you will arrange for follow-up care as recommended. 3. Authorization for the Emergency Physician to provide information to your follow-up Physician in order to maximize your care. AT ANY TIME, IF YOUR SYMPTOMS CHANGE SIGNIFICANTLY OR WORSEN OR YOU DEVELOP NEW SYMPTOMS, RETURN TO THE EMERGENCY DEPARTMENT IMMEDIATELY FOR RE-EVALUATION. OUR GOAL IS TO PROVIDE EXCELLENT MEDICAL CARE! WE HOPE THAT WE HAVE MET YOUR EXPECTATIONS DURING YOUR EMERGENCY DEPARTMENT VISIT AND THAT YOU FEEL YOU HAVE RECEIVED EXCELLENT CARE! Referrals: LETICIA RANKIN MD [Primary Care Provider] - Follow up as needed I personally performed the services described in the documentation, reviewed and edited the documentation which was dictated to the scribe in my presence, and it accurately records my words and actions.
[2020-07-16] MEDS ORDERED: OXYMETAZOLINE HCL 0.05% NASAL SPRAY 15 ML BOTTLE NASL ONE (01:38)
[2020-07-16 02:35] VITALS: BP 124/76
--- NOTE | 2020-07-16 09:02 | EKG REPORT ---
SEVERITY:- ABNORMAL ECG - SINUS TACHYCARDIA ABNORMAL T, CONSIDER ISCHEMIA, LATERAL LEADS : Confirmed by: Thompson Russell MD 16-Jul-2020 09:02:11
== END 2020-07-16 02:00 | disposition home or self-care (01) ==
LOC: ER 22:06
DX: R09.81 Nasal congestion (principal); T50.B95A Adverse effect of other viral vaccines, initial encounter; R68.83 Chills (without fever); M79.10 Myalgia, unspecified site; R00.0 Tachycardia, unspecified; I25.10 Atherosclerotic heart disease of native coronary artery without angina pectoris; I10 Essential (primary) hypertension; E11.9 Type 2 diabetes mellitus without complications; Z87.891 Personal history of nicotine dependence; Z88.8 Allergy status to other drugs, medicaments and biological substances
CPT/HCPCS: 93005; 94640; 99285; 96361 ×2; 96374; 36415; 87040; 83605; 85025; 85610; 87077; 80053; 84484; 82803; 87150 ×26; 71045; 93010; J1885; A9270 ×2; J7030; J3490; J7614